=== PATIENT | female | born 1995 | race Asian ===

== ENCOUNTER 2022-12-07 08:05 | Emergency (ER) | payer BC, SELFPAY ==
[2022-12-07 08:09] VITALS: BP 135/95; PULSE 105; RESP 18; TEMP 36.3; O2SAT 99; BMI 30.4
--- NOTE | 2022-12-07 08:45 | US_ITS ---
Patient: KAROLINE CASTANON Facility:?[facility] Patient ID:?[id number] Site Patient ID:?[id number]. Site :?[id number] Study:?US-Pelvis -12/07/2022 10:51:45 AM Ordering Physician:Manish Madsen Final Report: INDICATION: Left lower quadrant abdominal pain. FINDINGS: A transabdominal and endovaginal pelvic ultrasound shows the uterus of normal size, contour, and echogenicity. Normal appearance of the endometrial stripe which measures 9 mm in thickness. Nabothian cysts in the cervix. Normal appearance of the ovaries with the right ovary measuring 2.9 x 2.3 x 2.0 cm and left ovary measuring 3.5 x 1.5 x 1.0 cm. Color and spectral Doppler analysis shows normal arterial and venous blood flow to both ovaries. Trace amount of free fluid in the pelvis. Impression : 1. No acute abnormalities of the uterus or ovaries identified. Dictated by Dale Grider MD @ 12/07/2022 11:28:02 AM Signed by:?Dale Grider MD @12/07/2022 11:28:02 AM (Electronic Signature)
[2022-12-07] MEDS: 0.9 % SODIUM CHLORIDE 1000 ml 1,000 ML IV (09:07)
[2022-12-07] MEDS: KETOROLAC 30 MG/ML inj IVP (09:08)
[2022-12-07 09:15] LABS: Lactate* 1.9 mmol/L (0.5-1.9)
[2022-12-07 09:16] LABS: Basophils Absolute Auto 0.03 K/uL (0.00-0.30); Basophils Percent Auto 0.3 % (0.0-3.0); Eosinophils Absolute Auto 0.24 K/uL (0.00-0.50); Eosinophils Percent Auto 2.2 % (0.0-7.0); Hematocrit 38.6 % (33.0-51.0); Hemoglobin* 12.7 gm/dL (12.0-16.0); Immature Granulocytes Abs Auto 0.02 K/uL (0.00-0.30); Immature Granulocytes Pct Auto 0.2 %; Lymphocytes Absolute Auto 2.42 K/uL (0.90-2.90); Lymphocytes Percent Auto 22.3 % (20-44); Mean Corpuscular HGB Conc 33 gm/dL (32-36); Mean Corpuscular Hemoglobin 27 pg (26-34); Mean Corpuscular Volume 83 fL (80-100); Monocytes Percent Auto 5.5 % (0.0-11.0); Neutrophils Absolute Auto 7.55 K/uL (1.7-7.0); Neutrophils Percent Auto 69.5 % (42.0-72.0); Platelet Count* 454 K/uL (140-440); RDW Coefficient of Variation % 13.4 % (11.5-15.5); Red Blood Count 4.65 m/uL (4.00-5.20); White Blood Count* 10.86 K/uL (4.50-11.00)
[2022-12-07 09:18] LABS: Slide Review Reflex No
--- NOTE | 2022-12-07 09:21 | ED_ITS ---
HPI - Abdominal Pain General Chief Complaint: Abdominal Pain Stated Complaint: left lower abdominal pain, and right knee pain Time Seen by Provider: 12/07/22 08:23 Source: patient Mode of arrival: ambulatory Limitations: no limitations History of Present Illness HPI narrative: 27-year-old female coming in today complaining of left lower abdominal pain that started around 3:00 a.m. therefore, it has been going on for approximately 7 hours. Nothing seems to make it better, movement makes it worse. Does not radiate and stays in the left lower quadrant. She does not have any nausea or vomiting. She did not eat anything this morning. No fevers or chills. Last period was approximately 2 weeks ago, however, she had spontaneous spotting that started yesterday. She is sexually active and is not on any control. She denies any urinary symptoms like increased frequency, urgency or dysuria. Bowel movements have been normal and regular. Patient does state that she has a history of polycystic ovarian syndrome, does not take any medications. Patient has 3 children at. Had chlamydia 1 year ago. Related Data Home Medications Medication Instructions Recorded Confirmed No Known Home Medications 12/07/22 12/07/22 Allergies Allergy/AdvReac Type Severity Reaction Status Date / Time Sulfa (Sulfonamide Allergy Verified 12/07/22 08:13 Antibiotics) Review of Systems Status of ROS Reports: 10 or more systems reviewed and unremarkable except as noted in History and below [facility] Social History Smoking Status: Never smoker How often do you have a drink containing alcohol: monthly or less AUDIT-C Alcohol total score: 1 Non-prescribed substance use: denies use Exam Narrative: Exam Narrative: Well-nourished well-developed patient, appears uncomfortable. Alert and oriented. Answers questions appropriately. Mood and affect are appropriate. Thoughts are goal oriented and rational. No tangential or magical thinking noted. Patient speaks in full sentences without needing to catch her breath. HEENT: Normocephalic atraumatic. Pupils are equally round reactive to light. Extraocular muscles are intact. Conjunctivae are moist without any icterus noted. Moist mucous membranes. Posterior pharynx is normal. Neck is soft without any lymphadenopathy or thyromegaly. No masses are appreciated. Cardiovascular: Heart is regular rate and rhythm S1 and S2 are present without any murmurs. Lungs: Clear to auscultation bilaterally no wheezes rhonchi or rales are appreciated. Patient takes deep breaths without any discomfort. Abdomen: Soft and nondistended with normal bowel sounds. No guarding or rebound. No masses or organomegaly appreciated. She does have left lower quadrant tenderness. No periumbilical pain. Extremities: Bilateral lower extremities are without edema. Normal DP and PT pulses. Skin: Well perfused without any obvious rashes. Const: Vital Signs, click to edit/add: Vital Signs - 24 hr 12/07/22 08:09 12/07/22 10:20 12/07/22 11:47 Temperature 97.3 F L Pulse Rate [Right Pulse Oximeter] 105 H 79 86 Respiratory Rate 18 18 16 Blood Pressure [Ri ght Upper Arm] 135/95 H 129/90 H 129/80 Pulse Oximetry 99 99 98 Oxygen Delivery Me thod Room Air Room Air Room Air 12/07/22 12:00 Temperature Pulse Rate [Right Pulse Oximeter] 91 Respiratory Rate 16 Blood Pressure [Ri ght Upper Arm] 124/92 H Pulse Oximetry 99 Oxygen Delivery Me thod Room Air Course Course Hospital Course: IV established and patient received normal saline and Toradol. This did not really help her pain so it was followed up with morphine. Labs were unremarkable. However, her test was positive. Pelvic ultrasound was entirely normal and did not show evidence of . The tech had mention an abnormality by the left ovary, I discussed this with the radiologist and he stated that it looked like normal the bowel loops hence the reason it was not mention his report. HCG quantitative was 815. Discussed this case with Dr. Medeiros who recommends pain management and clinic follow-up in 2-3 days for repeat HCG quantitative. Of note, patient does not want this . Pain was controlled with oral hydrocodone. Vital Signs Vital signs: Initial Vital Signs Temperature 97.3 F L 12/07/22 08:09 Temperature Source Temporal Artery Scan 12/07/22 08:09 Pulse Rate 105 H 12/07/22 08:09 Respiratory Rate 18 12/07/22 08:09 Blood Pressure 135/95 H 12/07/22 08:09 Blood Pressure Mean 108 H 12/07/22 08:09 Blood Pressure Position Sitting 12/07/22 08:09 Pulse Oximetry 99 12/07/22 08:09 Oxygen Delivery Method Room Air 12/07/22 08:09 Vital Signs Temperature 97.3 F L 12/07/22 08:09 Pulse Rate 105 H 12/07/22 08:09 Respiratory Rate 18 12/07/22 08:09 Blood Pressure 135/95 H 12/07/22 08:09 Pulse Oximetry 99 12/07/22 08:09 Oxygen Delivery Method Room Air 12/07/22 08:09 Temperature 97.3 F L 12/07/22 08:09 Pulse Rate 91 12/07/22 12:00 Respiratory Rate 16 12/07/22 12:00 Blood Pressure 124/92 H 12/07/22 12:00 Pulse Oximetry 99 12/07/22 12:00 Oxygen Delivery Method Room Air 12/07/22 12:00 MDM - Abdominal Pain MDM Narrative Medical decision making narrative: 27-year-old female with indeterminate and left lower quadrant abdominal pain. Patient will follow-up with OBGYN in the next 2-3 days for repeat lab work and appropriate follow-up. She will return to the ER if symptoms become significantly worse, she develops vomiting or fever. Patient will be sent home with 10 tablets of Percocet 5-325. Lab Data Attestation: I reviewed the patient's lab results. Labs: Lab Results 12/07/22 12/07/22 Range/Units 09:03 11:10 WBC 10.86 (4.50-11.00) K/uL RBC 4.65 (4.00-5.20) m/uL Hgb 12.7 (12.0-16.0) gm/dL Hct 38.6 (33.0-51.0) % MCV 83 (80-100) fL MCH 27 (26-34) pg MCHC 33 (32-36) gm/dL RDW Coeff of David 13.4 (11.5-15.5) % Plt Count 454 H (140-440) K/uL Neut % (Auto) 69.5 (42.0-72.0) % Lymph % (Auto) 22.3 (20-44) % [place] % (Auto) 5.5 (0.0-11.0) % Eos % (Auto) 2.2 (0.0-7.0) % Baso % (Auto) 0.3 (0.0-3.0) % Neut # (Auto) 7.55 H (1.7-7.0) K/uL Lymph # (Auto) 2.42 (0.90-2.90) K/uL [place]yler # (Auto) 0.60 (0.00-0.90) K/UL Eos # (Auto) 0.24 (0.00-0.50) K/uL Baso # (Auto) 0.03 (0.00-0.30) K/uL Abs Immat Gran (auto) 0.02 (0.00-0.30) K/uL Imm/Tot Granulo (auto) 0.2 % Sodium 135 (135-149) mmol/L Potassium 3.8 (3.6-5.1) mmol/L Chloride 105 (96-114) mmol/L Carbon Dioxide 19 L (20-32) mmol/L BUN 11 (5-24) mg/dL Creatinine 0.8 (0.5-1.5) mg/dL Estimated Creat Clear 83.54 Estimated GFR 104 ml/min Glucose 127 H (60-115) mg/dL Lactate 1.9 (0.5-1.9) mmol/L Calcium 9.1 (8.4-10.6) mg/dL Total Bilirubin 0.6 (0.1-1.5) mg/dL Direct Bilirubin 0.2 (0.0-0.5) mg/dL AST 34 (12-35) U/L ALT 31 (4-35) U/L Alkaline Phosphatase 73 (40-150) U/L C-Reactive Protein 0.5 (0.5-1.0) mg/dL Total Protein 8.1 (6.0-8.3) g/dL Albumin 4.5 (3.3-5.0) g/dL HCG, Quant 815.00 mIU/mL Urine Color [place] A (Yellow) Urine Appearance Slightly Cloudy A (Clear) Urine pH 6.0 (5.0-8.5) Ur Specific [place] 1.020 (1.000-1.030) Urine Protein 1+ A (Negative) Urine Glucose (UA) Negative (Negative) Urine Ketones Negative (Negative) Urine Blood 3+ A (Negative) Urine Nitrite Negative (Negative) Urine Bilirubin Negative (Negative) Urine Urobilinogen 0.2 (0.2-1.0) Ur Leukocyte Esterase Negative (Negative) Urine RBC >100 A (0-2) Urine WBC 2-5 (0-5) Ur Squamous Epith Cells Many A (None-Few) Urine Bacteria Few A (None) Urine HCG, Qual POSITIVE H (Negative) Imaging Data Pelvic ultrasound: Attestation: I have reviewed the pertinent imaging results. Radiologist's impression: Left lower quadrant abdominal pain. FINDINGS: A transabdominal and endovaginal pelvic ultrasound shows the uterus of normal size, contour, and echogenicity. Normal appearance of the endometrial stripe which measures 9 mm in thickness. Nabothian cysts in the cervix. Normal appearance of the ovaries with the right ovary measuring 2.9 x 2.3 x 2.0 cm and left ovary measuring 3.5 x 1.5 x 1.0 cm. Color and spectral Doppler analysis shows normal arterial and venous blood flow to both ovaries. Trace amount of free fluid in the pelvis. Impression : 1. No acute abnormalities of the uterus or ovaries identified. Discharge Plan Discharge Clinical Impression: , Abdominal pain Patient Disposition: Home, Self-Care Condition: Stable Additional Instructions: You should call the [facility] 1st thing in the morning and request an appointment in 2-3 days for an ER follow-up. Take pain medication as needed. Return to the emergency room if the pain becomes significantly worse, you develop vomiting or fever. Pain medication sent to [facility]. Prescriptions: No Action No Known Home Medications Follow Up/Referrals: Danielle Guardado PA-C [Primary Care Provider] - Stand Alone Forms: [employer] Info Instructions
[2022-12-07 09:32] LABS: Albumin* 4.5 g/dL (3.3-5.0); Chloride* 105 mmol/L (96-114); Sodium* 135 mmol/L (135-149)
[2022-12-07 09:33] LABS: Potassium* 3.8 mmol/L (3.6-5.1)
[2022-12-07 09:35] LABS: Bilirubin Direct* 0.2 mg/dL (0.0-0.5); Bilirubin Total* 0.6 mg/dL (0.1-1.5); Carbon Dioxide* 19 mmol/L (20-32); Creatinine* 0.8 mg/dL (0.5-1.5); Est. Creatinine Clearance* 83.54; Estimated Glomerular Filt Rate 104 ml/min
[2022-12-07 09:36] LABS: Alanine Aminotransferase* 31 U/L (4-35); Alkaline Phosphatase* 73 U/L (40-150); Aspartate Amino Transferase* 34 U/L (12-35); Blood Urea Nitrogen* 11 mg/dL (5-24); Calcium* 9.1 mg/dL (8.4-10.6); Glucose* 127 mg/dL (60-115); Total Protein* 8.1 g/dL (6.0-8.3)
[2022-12-07 09:38] LABS: C Reactive Protein* 0.5 mg/dL (0.5-1.0)
[2022-12-07 10:20] VITALS: BP 129/90; PULSE 79; RESP 18; O2SAT 99
[2022-12-07 11:18] LABS: Appearance Urine Slightly Cloudy (Clear); Bilirubin Urine Negative (Negative); Blood Urine 3+ (Negative); Color Urine Orange (Yellow); Glucose Urine Negative (Negative); Ketones Urine Negative (Negative); Leukocyte Esterase Urine Negative (Negative); Nitrite Urine Negative (Negative); Protein Urine 1+ (Negative); Urobilinogen Urine 0.2 (0.2-1.0)
[2022-12-07] MEDS: MORPHINE 2 MG/ML inj IVP (11:37)
[2022-12-07 11:44] LABS: Bacteria Urine Few; RBC Urine >100 (0-2); Squamous Epithelial Cell Urine Many (None-Few)
--- NOTE | 2022-12-07 11:44 | ED.NURSE ---
patient is having continued pain rated at 8/10 scale. given Morphine 2 mg IVP now for pain. wanting to know how long will need to stay.
[2022-12-07 11:47] VITALS: BP 129/80; PULSE 86; RESP 16; O2SAT 98
[2022-12-07 11:50] LABS: Ur HCG Qualitative* POSITIVE (Negative)
[2022-12-07 12:00] VITALS: BP 124/92; PULSE 91; RESP 16; O2SAT 99
--- NOTE | 2022-12-07 12:25 | ED.NURSE ---
up to the bathroom via ambulatory and stated pain is 7/10 scale. c/o feeling pulsating and comes/goes with pain, and as if going to explode. Informed Dr. Lai of this.
[2022-12-07] MEDS: HYDROCODONE-ACETAMIN 5-325 MG 1 TAB 2 TAB PO (12:42)
--- NOTE | 2022-12-07 12:53 | ED.NURSE ---
patient continues to have pain in the LLQ and given norco for pain [address] Lai is in talking with patient and patient is not wanting PG and if able to take something to prevent growth of fetus patient would like this. is talking to [facility]STRATE TESTER
--- NOTE | 2022-12-07 13:20 | ED.NURSE ---
Pt notified this administrative underwriter during discharge that she is unable to take oxycodone due to vomiting. Pt requesting different prescription. Dr. Lai notified. Per Dr. Lai, cancel [facility] prescription for Percocet. New RX written for Hydrocodone 5-325mg Take 1 tab PO Q 4 hours PRN for pain. No refills. Qty of 10. Written RX given to patient. Call placed to [facility] to cancel Percocet prescription.
== END 2022-12-07 13:17 | disposition home or self-care (01) ==
PROVIDERS: Emergency Provider Family Medicine; PCP Physician Assistant Medical
DX: R10.9 Unspecified abdominal pain (principal); Z33.1 Pregnant state, incidental
CPT/HCPCS: 36415; 76830; 76856; 80048; 80076; 81001; 81025; 83605; 84702; 85025; 86140; 87086; 93976; 96361; 96374; 96375; 99284; 99285; A9270; J1885; J2270; J7030

== ENCOUNTER 2022-12-09 16:04 | Day surgery (SDC) | payer BC, SELFPAY ==
[2022-12-09] VITALS (24 sets, daily range): BP systolic 101–136; BP diastolic 50–92; PULSE 63–113; RESP 12–24; TEMP 36.2–36.7; O2SAT 96–100; BMI 31.0
--- NOTE | 2022-12-09 16:29 | ED_ITS ---
HPI - General Adult General Chief complaint: Abdominal Pain Stated complaint: Lower abdominal pain, L side Time Seen by Provider: 12/09/22 16:13 History of Present Illness HPI narrative: patient is still in pain and about the same as on Thursday. found + PG and did the blood HCG quant to show patient is very early in PG and was to return to clinic for a FU appointment and did which send to ED for evaluation. US unsure of location if in uterus or fallopian tube unclear 27-year-old presenting to the emergency department, returning after visit 2 days ago. Began having some bleeding the night of the and then seen here the following morning. Was noted to be very early in but unable to locate gestational sac. Continues to have pain and menstrual type bleeding. Has not had a fever. No other discharge noted. Does not feel like eating but not exactly nauseated. Pain has been quite intense. Cramping in nature. Straightening up or extending at the waist in any way causes a great deal of pain. Is not feeling lightheaded. Not short of breath. The [place] she received she says is not helping with the pain though she manages to briefly fall asleep. Yesterday beta hCG serum quantitative was a little more than 800. She notes a history of menses every other month typically. LMP was November 22. Notes a history of PCOS. Related Data Home Medications Medication Instructions Recorded Confirmed No Known Home Medications 12/07/22 12/09/22 Allergies Allergy/AdvReac Type Severity Reaction Status Date / Time Sulfa (Sulfonamide Allergy Verified 12/09/22 16:15 Antibiotics) Review of Systems Status of ROS: Reports: 6 or more systems reviewed and unremarkable except as noted in History and below [facility] Social History What is your current living situation?: I presently have a place to live Problems where you live: no known problems In the past 12 months, utilities in danger of being shut off: no In the past 12 mos, have been you worried that your food would run out before you had money to buy more?: never true In the past 12 mos, the food you bought just didn't last and you didn't have money to buy more?: never true Smoking Status: Current some day smoker Do you use any of these nicotine containing products: E-Cigarettes How often do you have a drink containing alcohol: monthly or less AUDIT-C Alcohol total score: 1 Non-prescribed substance use: denies use How often does anyone, including family, friends and others, physically hurt you : never How often does anyone, including family, friends and others, insult or talk down to you: never How often does anyone, including family, friends and others, threaten you with harm: never How often does anyone, including family, friends and others, scream or curse at you: never Exam Narrative: Exam Narrative: Pleasant. Uncomfortable appearing. Winces in transition. Breathing easily otherwise. Lungs appear to be clear. Heart in elevated rate in a regular rhythm. Has no flank pain. Abdomen is soft and she guards a little in marked pain in the left lower quadrant/adnexal area. Extremities are well perfused without edema. Const: Vital Signs, click to edit/add: Vital Signs - 24 hr 12/09/22 16:09 12/09/22 17:00 12/09/22 17:10 Temperature 98.0 F Pulse Rate Pulse Rate [Right Pulse Oximeter] 98 Respiratory Rate 16 Blood Pressure [Le ft Upper Arm] 108/74 126/88 Pulse Oximetry 98 98 Oxygen Delivery Me thod Room Air 12/09/22 17:18 Temperature Pulse Rate 96 Pulse Rate [Right Pulse Oximeter] Respiratory Rate Blood Pressure [Le ft Upper Arm] Pulse Oximetry 98 Oxygen Delivery Me thod Documenting provider has reviewed patient's vital signs: yes Course Vital Signs Vital signs: Initial Vital Signs Temperature 98.0 F 12/09/22 16:09 Temperature Source Temporal Artery Scan 12/09/22 16:09 Pulse Rate 98 12/09/22 16:09 Respiratory Rate 16 12/09/22 16:09 Blood Pressure 108/74 12/09/22 16:09 Blood Pressure Mean 85 12/09/22 16:09 Blood Pressure Position Sitting 12/09/22 16:09 Pulse Oximetry 98 12/09/22 16:09 Oxygen Delivery Method Room Air 12/09/22 16:09 Vital Signs Temperature 98.0 F 12/09/22 16:09 Pulse Rate 98 12/09/22 16:09 Respiratory Rate 16 12/09/22 16:09 Blood Pressure 108/74 12/09/22 16:09 Pulse Oximetry 98 12/09/22 16:09 Oxygen Delivery Method Room Air 12/09/22 16:09 Temperature 98.0 F 12/09/22 16:09 Pulse Rate 96 12/09/22 17:18 Respiratory Rate 16 12/09/22 16:09 Blood Pressure 126/88 12/09/22 17:10 Pulse Oximetry 98 12/09/22 17:18 Oxygen Delivery Method Room Air 12/09/22 16:09 Medical Decision Making MDM Narrative Medical decision making narrative: Location of apparent is still in question. Will re-evaluate with ultrasound and hCG quantitative. Repeat CBC as well and type and screen. IV placed. Given IV normal saline and dose of Dilaudid. Subsequent nausea required Zofran. New Vehicle Sales Consultant indicates concern of potential ectopic in the left adnexal area. HCG is decreasing. Has required repeat doses of Dilaudid for pain control. Abdomen remains exquisitely tender. Have contacted confidential secretary on-call Dr. Longo and anticipating surgery. Discussed with Dr. Uribe ultrasound findings confirming above Final Report: INDICATION: Left lower quadrant pain, + test. COMPARISON: December 07, 2022. TECHNIQUE: Transvaginal ultrasound images grayscale and color Doppler. FINDINGS: The uterus is retroflexed. The uterus appears enlarged. The endometrial stripe measures 1.2 cm. There is no intrauterine identified. The right ovary appears normal. The left ovary may contain several follicles. There is a mass in the left adnexa, likely separate from the left ovary measuring 1.7 x 1.3 x 1.3 cm. There is increased free fluid within the pelvis. IMPRESSION: of unknown location with probable mass in the left adnexa separate from the ovary and increasing free fluid in the pelvis. Findings are an ectopic until proven otherwise. Recommend immediate FLUE GAS ANALYST consultation. Lab Data Lab results reviewed: Yes I reviewed the patient's lab results Labs: Lab Results 12/09/22 12/09/22 Range/Units 16:59 17:30 WBC 12.35 H (4.50-11.00) K/uL RBC 4.59 (4.00-5.20) m/uL Hgb 12.5 (12.0-16.0) gm/dL Hct 38.3 (33.0-51.0) % MCV 83 (80-100) fL MCH 27 (26-34) pg MCHC 33 (32-36) gm/dL RDW Coeff of David 13.5 (11.5-15.5) % Plt Count 437 (140-440) K/uL Neut % (Auto) 78.3 H (42.0-72.0) % Lymph % (Auto) 14.9 L (20-44) % Dolores % (Auto) 4.9 (0.0-11.0) % Eos % (Auto) 1.5 (0.0-7.0) % Baso % (Auto) 0.2 (0.0-3.0) % Neut # (Auto) 9.70 H (1.7-7.0) K/uL Lymph # (Auto) 1.80 (0.90-2.90) K/uL [place] # (Auto) 0.60 (0.00-0.90) K/UL Eos # (Auto) 0.20 (0.00-0.50) K/uL Baso # (Auto) 0.00 (0.00-0.30) K/uL Abs Immat Gran (auto) 0.00 (0.00-0.30) K/uL Imm/Tot Granulo (auto) 0.2 % C-Reactive Protein 0.7 (0.5-1.0) mg/dL HCG, Quant 729.40 mIU/mL Urine Color Red A (Yellow) Urine Appearance Cloudy A (Clear) Urine pH 6.5 (5.0-8.5) Ur Specific [place] 1.020 (1.000-1.030) Urine Protein 1+ A (Negative) Urine Glucose (UA) Negative (Negative) Urine Ketones 1+ A (Negative) Urine Blood 3+ A (Negative) Urine Nitrite Negative (Negative) Urine Bilirubin Negative (Negative) Urine Urobilinogen 0.2 (0.2-1.0) Ur Leukocyte Esterase Negative (Negative) Urine RBC >100 A (0-2) Urine WBC 0-2 (0-5) Ur Squamous Epith Cells Moderate A (None-Few) Urine Bacteria None (None) Blood Type AB Positive Antibody Screen NEGATIVE Discharge Plan Discharge Clinical Impression: Ectopic , Adnexal pain Patient Disposition: XFER to OR Condition: Stable Follow Up/Referrals: Danielle Guardado PASinaC [Primary Care Provider] -
--- NOTE | 2022-12-09 16:44 | CRLHL7_ITS ---
For Patients: As a result of the Cures Act, medical imaging exams and procedure reports are released immediately into your electronic medical record. You may view this report before your referring provider. If you have questions, please contact your health care provider. INDICATION: Left lower quadrant pain, + test. COMPARISON: December 07, 2022. TECHNIQUE: Transvaginal ultrasound images grayscale and color Doppler. FINDINGS: The uterus is retroflexed. The uterus appears enlarged. The endometrial stripe measures 1.2 cm. There is no intrauterine identified. The right ovary appears normal. The left ovary may contain several follicles. There is a mass in the left adnexa, likely separate from the left ovary measuring 1.7 x 1.3 x 1.3 cm. There is increased free fluid within the pelvis. IMPRESSION: of unknown location with probable mass in the left adnexa separate from the ovary and increasing free fluid in the pelvis. Findings are an ectopic until proven otherwise. Recommend immediate NANOFABRICATION SPECIALIST consultation. Discussed with Cuco Leyva by MD Jojo at 6:39 PM on 12/09/22. Dictated by Boo Uribe MD @ 12/09/2022 6:33:01 PM (Electronically Signed)
[2022-12-09] MEDS: 0.9 % SODIUM CHLORIDE 1000 ml 1,000 ML IV (17:00)
[2022-12-09] MEDS: HYDROmorphone 0.5 mg/0.5 ml inj 1 MG IVP (17:00)
[2022-12-09 17:08] LABS: Basophils Percent Auto 0.2 % (0.0-3.0); Eosinophils Percent Auto 1.5 % (0.0-7.0); Hematocrit 38.3 % (33.0-51.0); Hemoglobin* 12.5 gm/dL (12.0-16.0); Immature Granulocytes Pct Auto 0.2 %; Lymphocytes Percent Auto 14.9 % (20-44); Mean Corpuscular HGB Conc 33 gm/dL (32-36); Mean Corpuscular Hemoglobin 27 pg (26-34); Mean Corpuscular Volume 83 fL (80-100); Monocytes Percent Auto 4.9 % (0.0-11.0); Neutrophils Percent Auto 78.3 % (42.0-72.0); Platelet Count* 437 K/uL (140-440); RDW Coefficient of Variation % 13.5 % (11.5-15.5); Red Blood Count 4.59 m/uL (4.00-5.20); White Blood Count* 12.35 K/uL (4.50-11.00)
[2022-12-09] MEDS: ONDANSETRON 2 MG/ML inj 4 MG IVP ×2 (17:11→20:00)
[2022-12-09 17:23] LABS: Slide Review Reflex No
[2022-12-09 17:39] LABS: Appearance Urine Cloudy (Clear); Bilirubin Urine Negative (Negative); Blood Urine 3+ (Negative); Color Urine Red (Yellow); Glucose Urine Negative (Negative); Ketones Urine 1+ (Negative); Leukocyte Esterase Urine Negative (Negative); Nitrite Urine Negative (Negative); Protein Urine 1+ (Negative); Urobilinogen Urine 0.2 (0.2-1.0); pH Urine 6.5 (5.0-8.5)
[2022-12-09 17:42] LABS: C Reactive Protein* 0.7 mg/dL (0.5-1.0)
[2022-12-09 17:51] LABS: RBC Urine >100 (0-2); Squamous Epithelial Cell Urine Moderate (None-Few); WBC Urine 0-2 (0-5)
[2022-12-09] MEDS: HYDROmorphone 0.5 mg/0.5 ml inj IVP (18:24)
--- NOTE | 2022-12-09 19:50 | PM.GYNCN1 ---
ETHYLBENZENE OXIDIZER - CN: HPI Data of Consult Date Seen: 12/09/22 Patient: [facility] Patient Consult date: 12/09/22 Requesting Physician: Dr. Cuco Middleton Primary Care Provider: Danielle Guardado PA-C Consult Narrative Narrative: Tierney Bird is a 27 year old female who presents for a second visit to the ER for abdominal pain in early . She was 1st seen for this complaint 12/07/2022. In the ER, at that time, she was found to have quantitative HCG of 818. She had a normal pelvic ultrasound at that time with a 9 mm endometrial stripe. She was seen in follow-up by Mary Zapien CNM in clinic. She was found have severe abdominal pain, and was sent to the ER for further evaluation. She had a repeat ultrasound showing 1.2 cm endometrial stripe without any intrauterine identified. There was a mass noted in the left adnexa, likely separate from the left ovary, measuring 1.3 x 11.7 x 1.3 cm. There is also increased free fluid in the pelvis. Both of these findings are suspicious for ectopic . Additional pertinent testing today includes: Quantitative HCG 729.4 WBC 12.35, hemoglobin 12.5, platelets 437 These results are reviewed with her today. She is interested in sterilization. She is certain she wants no more children. However, she does have Medicaid for insurance. Obstetric and gynecologic history: Para 3, with 3 spontaneous vaginal deliveries. Pregnancies complicated by nausea and vomiting. PCOS, with oligomenorrhea every 2 months Past surgical history: Breast lumpectomy for benign disease cc:: CC: Review of Systems Narrative: Positive for abdominal pain PFSH PFSH Surgical History (Updated 12/09/22 @ 19:57 by Laura Longo MD) S/P breast lumpectomy ?Z98.890 - Other specified postprocedural states (ICD-10) Social History What is your current living situation?: I presently have a place to live Problems where you live: no known problems In the past 12 months, utilities in danger of being shut off: no In the past 12 mos, have been you worried that your food would run out before you had money to buy more?: never true In the past 12 mos, the food you bought just didn't last and you didn't have money to buy more?: never true Smoking Status: Current some day smoker Do you use any of these nicotine containing products: E-Cigarettes How often do you have a drink containing alcohol: monthly or less AUDIT-C Alcohol total score: 1 Non-prescribed substance use: denies use How often does anyone, including family, friends and others, physically hurt you: never How often does anyone, including family, friends and others, insult or talk down to you: never How often does anyone, including family, friends and others, threaten you with harm: never How often does anyone, including family, friends and others, scream or curse at you: never Meds Home Medications and Allergies Home Medications Medication Instructions Recorded Confirmed Type No Known Home Medications 12/07/22 12/09/22 History Allergies Allergy/AdvReac Type Severity Reaction Status Date / Time Sulfa (Sulfonamide Allergy Verified 12/09/22 16:15 Antibiotics) ETHYLBENZENE OXIDIZER - Exam Physical Exam: Vital signs: Temp Pulse Resp BP Pulse Ox O2 Del Method 98.0 F 95 16 136/88 98 Room Air 12/09/22 16:09 12/09/22 19:02 12/09/22 16:09 12/09/22 19:01 12/09/22 19:02 12/09/22 16:09 Narrative: Physical exam: Vitals as noted above. General: No acute distress Psych: Alert and oriented x 3, full affect HEENT: Normocephalic, atraumatic Abdomen: Not distended, soft , severe abdominal pain noted by Dr. Middleton on his exam prior to narcotic pain medications ETHYLBENZENE OXIDIZER - Results Labs Labs: Short CBC 12/09/22 Range/Units 16:59 WBC 12.35 H (4.50-11.00) K/uL Hgb 12.5 (12.0-16.0) gm/dL Hct 38.3 (33.0-51.0) % Plt Count 437 (140-440) K/uL Urine 12/09/22 Range/Units 17:30 Urine Color Red A (Yellow) Urine Appearance Cloudy A (Clear) Urine pH 6.5 (5.0-8.5) Ur Specific [place] 1.020 (1.000-1.030) Urine Protein 1+ A (Negative) Urine Glucose (UA) Negative (Negative) Assessment and Plan Assessment and plan (1) Ectopic : Status: Acute Assessment and Plan: Definite nonviable . Suspected left ectopic on imaging. Patient does not desire fertility. I explained that I cannot remove both tubes unless there is a medical indication other than the desired sterilization. I will intend to remove the left tube, and will evaluate her other to for any abnormality. Plan is for laparoscopic left salpingectomy. We discussed risks of procedure, including bleeding/hemorrhage, infection, damage to internal organs, risks of anesthesia, thromboembolism. We discussed likely postoperative restrictions and precautions. She prefers treatment with hydrocodone or tramadol instead of oxycodone, which causes nausea and vomiting. Consent form is reviewed with and signed by patient.
[2022-12-09] MEDS: LACTATED RINGERS 1000 ML 1,000 ML 125 ML IV (20:08)
[2022-12-09] MEDS: BUPIVACAINE 0.25% 30 ML INJECTION (20:48)
--- NOTE | 2022-12-09 22:21 | W.PM.GYNPROC ---
Procedure Note Date of procedure: 12/09/22 Pre-op diagnosis: Nonviable , suspected ruptured ectopic Post-op diagnosis: other (1. Ruptured left tubal . 2. Endometriosis, involving the cul-de-sac, right fallopian tube, and possibly the rectovaginal septum and sigmoid colon. 3. Right hydrosalpinx. 4. Pelvic adhesions. 5. ) Procedure: Laparoscopy with bilateral salpingectomy, lysis of adhesions, excision of endometriosis Anesthesia: GETA Complications: None Surgeon: Laura Longo MD Estimated blood loss (mL): 25 IV fluids (mL): 900 Urine Output (mL): 500 Pathology: specimen obtained, sent to pathology Condition: stable Disposition: PACU Findings: 1. Upon pelvic exam under anesthesia, the cervix and vagina were normal in appearance. Uterus was mobile and retroverted, of normal size and texture. 2. Upon laparoscopy, survey of the upper abdomen revealed perihepatic lesions on the right lobe of the liver. The gallbladder was normal in appearance, as was the left lobe of the liver. There were adhesions of the descending colon along the left pelvic brim; the large intestine at this site was densely adherent to the pelvic sidewall and there was suspected endometriosis with in these adhesions. The appendix was normal appearance. Survey of the pelvis revealed a globular, retroverted uterus that was adherent to the right pelvic sidewall. There was blood in the pelvis. The left fallopian tube was bleeding and dilated from its mid isthmic portion through the fimbriated end, with clot, blood, and suspected chorionic villi extruding from the fimbria. The right fallopian tube was adherent to the pelvic sidewall and encased in filmy adhesions, obviously dilated, and exhibited deposits of endometriosis along its surface. The right ovary was adherent to the uterus with pelvic adhesions. Otherwise, ovaries were normal in appearance. The cul-de-sac exhibited some deep macules suspicious for endometriosis, with some suspicious nodules within the rectovaginal septum; this could represent hard stool or deeply imbedded endometriosis. The bladder reflection was normal in appearance. Procedure Description: Patient was taken to the operating room with IV running. She was positioned in dorsal lithotomy position with her legs fully supported in Yellofin stirrups. General anesthesia was administered. She was prepped and draped in the usual sterile fashion. Bimanual exam was performed for the above-noted findings. Speculum was inserted. A single-toothed uterine manipulator was inserted through the cervix into the lower uterine segment, and affixed to the anterior cervical lip. Speculum was removed. Weiss catheter was placed. Patient's legs were placed in neutral position. Attention was turned to patient's abdomen. The infraumbilical area was infiltrated with small amount of Marcaine. An infraumbilical incision was made with a scalpel and carried through to the underlying layer of fascia with a hemostat. The 5 mm Fios Kii trocar was assembled with laparoscope within, and insufflator attached. While tenting up the abdomen manually, the trocar was passed through the anterior abdominal wall into the peritoneal cavity. Trocar was removed. Pneumoperitoneum was achieved. Survey of abdomen and pelvis revealed the above-noted findings. Three additional port sites were created. The first was in the patient's left lower quadrant, just superior medial to the left ASIS. The second was a hand's breath superior to and slightly medial to the first. The third was in the patient's right lower quadrant, just superior medial to the right ASIS. Each was infiltrated with small amount of Marcaine prior to incision. An 11 mm incision was made at the left lower quadrant port site, and 5 mm incisions were made at the other 2 sites, making sure the large vessels were out of harm's way. An 11 mm Fios Kii port was inserted in left lower quadrant port site, and 5 mm Fios Kii ports were inserted at the other 2 sites, under direct visualization and without complication. The balloon on each of the four ports was inflated, holding each in place. The dilated left fallopian tube was is elevated at the pelvis, and held away from the left ovary. The blood supply was divided with the Thunderbeat device. Moving laterally to medially through the mesosalpinx, the Thunderbeat was used to cauterize and transect the mesosalpinx, until the cornua was reached. The tube was amputated at the cornua and placed along the anterior portion of the uterus. An Endo-Catch bag was placed through the left lower quadrant port site. The specimen was placed in the bag and the bag was cinched closed. The port was removed, allowing the bag to be removed as well. The specimen was sent to pathology. The port was then replaced and the balloon tip inflated once again. Attention was then turned to the right adnexa, which was encased in filmy adhesions. Separation of the filmy adhesions between the obviously dilated right fallopian tube resulted in some tearing of the distal part of the tube. This and the obviously dilated appearance with the obvious endometriosis implants on the surface lead to the need to remove the tube. Similarly to the left side, the blood supply was divided distally with the Thunderbeat device. The mesosalpinx was divided laterally to medially, and the tube was ultimately amputated at the right uterine cornua. The broad ligament was thickened at this site. This tube was also sent to pathology for further analysis. The filmy adhesions between the right ovary and the uterus were lysed sharply, allowing greater mobility of the uterus. A laparoscopic tenaculum was used to elevate the uterus by attaching this through the anterior fundus. The cul-de-sac was then more easily visualized. There was either hard stool or deeply imbedded endometriosis just adjacent to the rectum. There was a macule of suspected endometriosis in the cul-de-sac, adjacent to some filmy adhesions. The filmy adhesions were lysed, and the peritoneum at this site was excised sharply and sent to pathology for further analysis. Hemostasis was achieved with monopolar cautery. The synechia was removed from the fundus of the uterus, and hemostasis was achieved at the puncture sites using monopolar cautery. The pelvis was copiously irrigated. Hemostasis was confirmed. Approximately 200 mL of irrigation was left in the cul-de-sac. The 11 mm Fios Kii port in the left lower quadrant was removed after balloon on the port was deflated. The Cristopher-Padmini laparoscopic closure device was inserted through this port. With the help of this device, the fascia was closed with a single suture of 0-Vicryl. Procedure was deemed complete. The balloons of all remaining port sites were deflated, and all ports were removed after pneumoperitoneum was released. The skin of each port site was closed in a subcuticular fashion with 4 0 Monocryl. Surgical glue was applied above this. The uterine manipulator was removed from the patient's uterus. The Weiss catheter was removed from the patient's bladder. Patient tolerated procedure well and was taken to recovery area in stable condition.
--- NOTE | 2022-12-09 22:23 | W.ANESCHARGE ---
Anesthesia Charges Start Date/Time Anesthesia Start Date: 12/09/22 Anesthesia Start Time: 20:08 Stop Date/Time Anesthesia Stop Date: 12/09/22 Anesthesia Stop Time: 22:22 Summary Emergency: MEDICAL CODING TECHNICIAN
[2022-12-10] VITALS (7 sets, daily range): BP systolic 97–126; BP diastolic 61–77; PULSE 93–109; RESP 16–18; TEMP 36.2–36.7; O2SAT 98–100
[2022-12-10] MEDS: HYDROCODONE/ACETAMIN 7.5-325 TABLET 1 TAB PO ×2 (00:18→04:04)
[2022-12-10] MEDS: PROMETHAZINE 25 MG/ML INJ 12.5 MG IVP (00:18)
[2022-12-10] MEDS: LACTATED RINGERS 1000 ML 1,000 ML 125 ML IV (00:19)
--- NOTE | 2022-12-10 05:59 | PC.NURSE ---
END OF SHIFT NOTE: PT PLEASANT AND COOPERATIVE WITH CARES. DENIES CP AND SOB. FEELING NAUSEATED UPON RETURNING FROM PACU. PT RATES ABDOMINAL PAIN 6-10 WITH RELIEF FROM PRN NORCO. PT TOLERATING ICE CHIPS, ORAL FLUIDS AND FOOD.?AMBULATES INDEPENDENTLY. VSS ON RA; AFEBRILE. 4 LAP SITES GLUED, MARIANA; C/D/I. PT SLEPT WELL OVERNIGHT. CALL LIGHT WITHIN PT?S REACH.?
[2022-12-10] MEDS: IBUPROFEN 600 MG TABLET PO (06:16)
== END 2022-12-10 06:42 | disposition home or self-care (01) ==
LOC: ED 19:18 → SS 20:06 → MEDSURG 23:34
PROVIDERS: Emergency Provider Family Medicine; PCP Physician Assistant Medical; Visit Provider Obstetrics & Gynecology
PROC: (CPT 59150; principal; 2022-12-09 19:30)
DX: O00.102 Left tubal pregnancy without intrauterine pregnancy (principal); N80.322 Deep endometriosis of the posterior cul-de-sac; N73.6 Female pelvic peritoneal adhesions (postinfective); N70.11 Chronic salpingitis
CPT/HCPCS: 59151; 58662; 58660; 00840; 36415; 76817; 76830; 81001; 84702; 85025; 86140; 86850; 86900; 86901; 88305; 94761; 99140; 99284; A9270; J0330; J0665; J1170; J1885; J2250; J2371; J2405; J2550; J2704; J2710; J3010; J7030; J7120

== ENCOUNTER 2022-12-12 14:50 | Emergency (ER) | payer BC, SELFPAY ==
[2022-12-12] VITALS (8 sets, daily range): BP systolic 120–122; BP diastolic 80–86; PULSE 64–106; RESP 20; TEMP 36.4; O2SAT 96–99
--- NOTE | 2022-12-12 15:50 | ED_ITS ---
HPI - Abdominal Pain General Time Seen by Provider: 15:50 Date Seen: 12/12/22 Chief Complaint: Abdominal Pain Stated Complaint: Post op lower abdominal pain Time Seen by Provider: 12/12/22 15:30 Source: patient and RN notes reviewed Mode of arrival: ambulatory Limitations: no limitations History of Present Illness HPI narrative: Patient is a 27-year-old female that had surgery for ruptured ectopic here on December 09. She has noted increasing abdominal pain today, increased vaginal bleeding today. She has noted no fevers. Appetite has been diminished throughout this. She states she ate 2 corn dogs this morning but had to space them out. She states she has been tolerating fluids quite well. Denies any urinary symptoms. Last bowel movement was yesterday. Is passing some minimal gas today and states there is some difficulty passing gas. No nausea or vomiting. She did take Vicodin prior to coming in around 1pm. Has felt a little lightheaded today. Pain really has increased since yesterday. MD elicited complaint: abdominal pain Related Data Previous Rx's Medication Instructions Recorded hydrocodone 7.5 mg-acetaminophen 1 tab PO Q4H PRN 4 OR GREATER ON 12/09/22 325 mg tablet PAIN SCALE #25 tabs ibuprofen 600 mg tablet 600 mg PO Q6H PRN Pain #60 tabs 12/09/22 Allergies Allergy/AdvReac Type Severity Reaction Status Date / Time Sulfa (Sulfonamide Allergy Verified 12/09/22 16:15 Antibiotics) Review of Systems Status of ROS Reports: 6 or more systems reviewed and unremarkable except as noted in History and below [facility] Surgical History S/P breast lumpectomy ?Z98.890 - Other specified postprocedural states (ICD-10) Social History What is your current living situation?: I presently have a place to live Problems where you live: no known problems In the past 12 months, utilities in danger of being shut off: no In the past 12 mos, have been you worried that your food would run out before you had money to buy more?: never true In the past 12 mos, the food you bought just didn't last and you didn't have money to buy more?: never true Smoking Status: Current some day smoker Do you use any of these nicotine containing products: E-Cigarettes How often do you have a drink containing alcohol: monthly or less AUDIT-C Alcohol total score: 1 Non-prescribed substance use: denies use How often does anyone, including family, friends and others, physically hurt you : never How often does anyone, including family, friends and others, insult or talk down to you: never How often does anyone, including family, friends and others, threaten you with harm: never How often does anyone, including family, friends and others, scream or curse at you: never Exam Const: Vital Signs, click to edit/add: Vital Signs - 24 hr 12/12/22 15:12 12/12/22 17:15 12/12/22 17:30 Temperature 97.5 F L Pulse Rate 89 79 Pulse Rate [Pulse Oximeter] 106 H Respiratory Rate 20 Blood Pressure [Ri ght Upper Arm] 122/86 Pulse Oximetry 98 99 97 Oxygen Delivery Me thod Room Air 12/12/22 17:45 12/12/22 18:00 12/12/22 18:15 Temperature Pulse Rate 66 74 64 Pulse Rate [Pulse Oximeter] Respiratory Rate Blood Pressure [Ri ght Upper Arm] Pulse Oximetry 97 96 97 Oxygen Delivery Me thod 12/12/22 18:30 Temperature Pulse Rate 75 Pulse Rate [Pulse Oximeter] Respiratory Rate Blood Pressure [Ri ght Upper Arm] Pulse Oximetry 97 Oxygen Delivery Me thod Documenting provider has reviewed patient's vital signs: yes Common normals: no apparent distress, average body habitus, oriented x3, no limitations, healthy appearing, alert and well nourished General appearance: cooperative, comfortable, well kempt and well developed Other: Appears comfortable while lying in bed. HENMT: Common normals: normocephalic, head/scalp atraumatic, hearing grossly normal bilaterally and external nose normal Head and scalp: normocephalic and atraumatic Face and sinus: normal facial exam Nose: external nose normal Eye: Common normals: PERRL, EOMs intact bilaterally, conjunctivae normal and no scleral icterus Conjunctiva: conjunctiva(e) normal Pupil: PERRL Neck & C-Spine: Common normals: full ROM, no lymphadenopathy and supple Resp: Common normals: normal respiratory effort, no retractions, no use of accessory muscles and clear to auscultation bilaterally Effort & inspection: able to speak in complete sentences Auscultation: clear to auscultation bilaterally Cardio: Common normals: regular rate, regular rhythm, S1 normal heart sound, S2 normal heart sound, no gallops, no clicks and no murmurs Rate: regular rate Rhythm: regular rhythm Heart sounds: S1 normal and S2 normal GI: Other: Abdomen looks minimally distended, do not hear bowel sounds. She is quite tender when I palpate anywhere in the lower abdomen to mid abdomen. No guarding no true rebound but moderately generally diffusely tender. Incision sites seem to be clean dry intact, no evidence of erythema. She has a small amount of blood on a panty liner. Neuro: Common normals: oriented x3 Sensorium/orientation: alert Psych: Appearance: well kempt Course Course Hospital Course: Reviewed with patient that I do think we should proceed with CT imaging. With lack of bowel sounds in increasing abdominal pain, do wonder about bowel obstruction or ileus. Do not think she has intra-abdominal bleeding given her stability on examination. Will place an IV, obtain CT abdomen pelvis imaging with IV contrast, get baseline labs. She is declining any pain management at this time including Toradol have turn discussion. She promises to let us know if her pain is increasing. Reevaluation(s) Time of Reevaluation #1: 19:20 Reevaluation #1: Bladder scan was done while I was in there. Patient had just urinated. There was no urinary retention. Minimal urine found in bladder. Reviewed that her CT showing no concerning changes, labs are reassuring. She has ibuprofen and Vicodin at home for pain management. We discussed relative rest, splinting with movement and trying an ice pack on the abdominal wall to see that may help. There is certainly no identifiable complications of her surgery at this time. Vital Signs Vital signs: Initial Vital Signs Temperature 97.5 F L 12/12/22 15:12 Temperature Source Temporal Artery Scan 12/12/22 15:12 Pulse Rate 106 H 12/12/22 15:12 Respiratory Rate 20 12/12/22 15:12 Blood Pressure 122/86 12/12/22 15:12 Blood Pressure Mean 98 12/12/22 15:12 Blood Pressure Position Standing 12/12/22 15:12 Pulse Oximetry 98 12/12/22 15:12 Oxygen Delivery Method Room Air 12/12/22 15:12 Vital Signs Temperature 97.5 F L 12/12/22 15:12 Pulse Rate 106 H 12/12/22 15:12 Respiratory Rate 20 12/12/22 15:12 Blood Pressure 122/86 12/12/22 15:12 Pulse Oximetry 98 12/12/22 15:12 Oxygen Delivery Method Room Air 12/12/22 15:12 Temperature 97.5 F L 12/12/22 15:12 Pulse Rate 75 12/12/22 18:30 Respiratory Rate 20 12/12/22 15:12 Blood Pressure 122/86 12/12/22 15:12 Pulse Oximetry 97 12/12/22 18:30 Oxygen Delivery Method Room Air 12/12/22 15:12 MDM - Abdominal Pain Lab Data Attestation: I reviewed the patient's lab results. Labs: Lab Results 12/12/22 Range/Units 16:30 WBC 8.81 (4.50-11.00) K/uL RBC 4.24 (4.00-5.20) m/uL Hgb 11.5 L (12.0-16.0) gm/dL Hct 35.6 (33.0-51.0) % MCV 84 (80-100) fL MCH 27 (26-34) pg MCHC 32 (32-36) gm/dL RDW Coeff of David 13.3 (11.5-15.5) % Plt Count 408 (140-440) K/uL Neut % (Auto) 61.4 (42.0-72.0) % Lymph % (Auto) 28.0 (20-44) % Hill % (Auto) 7.3 (0.0-11.0) % Eos % (Auto) 2.7 (0.0-7.0) % Baso % (Auto) 0.5 (0.0-3.0) % Neut # (Auto) 5.41 (1.7-7.0) K/uL Lymph # (Auto) 2.47 (0.90-2.90) K/uL Hill # (Auto) 0.60 (0.00-0.90) K/UL Eos # (Auto) 0.24 (0.00-0.50) K/uL Baso # (Auto) 0.04 (0.00-0.30) K/uL Abs Immat Gran (auto) 0.01 (0.00-0.30) K/uL Imm/Tot Granulo (auto) 0.1 % Sodium 138 (135-149) mmol/L Potassium 3.6 (3.6-5.1) mmol/L Chloride 105 (96-114) mmol/L Carbon Dioxide 24 (20-32) mmol/L BUN 8 (5-24) mg/dL Creatinine 0.8 (0.5-1.5) mg/dL Estimated Creat Clear 83.54 Estimated GFR 104 ml/min Glucose 113 (60-115) mg/dL Lactate 2.1 H (0.5-1.9) mmol/L Calcium 9.1 (8.4-10.6) mg/dL Total Bilirubin 0.3 (0.1-1.5) mg/dL AST 35 (12-35) U/L ALT 32 (4-35) U/L Alkaline Phosphatase 64 (40-150) U/L C-Reactive Protein 1.3 H (0.5-1.0) mg/dL Total Protein 7.7 (6.0-8.3) g/dL Albumin 4.2 (3.3-5.0) g/dL Imaging Data CT scan - abdomen: Attestation: I have reviewed the pertinent imaging results. Radiologist's impression: Patient: KAROLINE CASTANON Facility:?[facility] Patient ID:?[id number] Site Patient ID:?[id number]. Site :?[id number] Study:?CT Abdomen/Pelvis W/ ISOVUE 370-12/12/2022 5:26:26 PM Ordering Physician:?Viry Madsen Final Report: INDICATION: Increasing abdominal pain. Status post ectopic. COMPARISON: Ultrasound of the pelvis transvaginal from 12/09/2022. CT of the abdomen & pelvis with contrast from 03/07/2020. TECHNIQUE: CT examination of the abdomen and pelvis was performed with the uneventful intravenous administration of 80 cc of Isovue 370 while 3 mm thick axial sections were obtained from the lung bases through the pubic symphysis. Oral contrast was not administered. Please note that all CT scans at this facility use dose modulation, iterative reconstruction, and/or weight-based dosing when appropriate to reduce radiation dose to as low as reasonably achievable. FINDINGS: In the liver, there is a stable vague low density region in the medial segment of the left lobe of the liver adjacent to the falciform ligament, consistent with a hemangioma or focal fatty infiltration. This is a common incidental finding and requires no further followup. The rest of the liver is normal in appearance. The spleen, pancreas and adrenals are normal in appearance. The kidneys are normal in appearance. The gallbladder is normal in appearance. The abdominal aorta is normal in caliber with no sign of dilatation. There is no sign of retroperitoneal mass or adenopathy. The stomach, loops of small bowel, and colon in the abdomen are normal in appearance. There is new soft tissue stranding in the periumbilical region which may be from recent laparoscopic surgery. In the pelvis, the appendix is normal in appearance with no sign of inflammatory process. The loops of small bowel, colon, and rectum in the pelvis are normal in appearance. The uterus and adnexal regions are normal in appearance. Incidental note is made of nabothian cysts in the cervix. The left adnexal mass noted on the previous ultrasound is not present. There continues to be a small amount of free fluid in the cul-de-sac. There is a new small amount of air around the uterus consistent with recent surgery. The urinary bladder is normal in appearance. There is no sign of pelvic or inguinal mass or adenopathy. There is no sign of free air or free fluid in the abdomen. There is no sign of free air or extraluminal air in the pelvis. The lung bases are clear. The osseous structures are normal in appearance for the patient`s age. IMPRESSION: Nothing seen to explain the patient`s abdominal pain. No sign of bowel dilatation or inflammatory process involving the bowel. No sign of pancreatitis. CT of the pelvis shows no sign of any left adnexal mass to correlate with the history of the treated ectopic gestation. There is a small amount of air and located around the uterus consistent with recent surgery. The small amount of free fluid is unchanged. New soft tissue stranding in the periumbilical region consistent with a laparoscopic port. CT of the abdomen shows no significant abnormality. Please note that all CT scans at this facility use dose modulation, iterative reconstruction, and/or weight-based dosing when appropriate to reduce radiation dose to as low as reasonably achievable. Dictated by Chuy Brown MD @ 12/12/2022 6:18:50 PM (Electronic Signature) Discharge Plan Discharge Clinical Impression: Acute postoperative pain Patient Disposition: Home, Self-Care Condition: Stable Instructions: Pain Management After Surgery (DC) Additional Instructions: Continue with the hydrocodone/acetaminophen and ibuprofen per prescription instructions. Can try an ice pack to the abdominal wall as that may help decrease some of the pain and inflammation from the surgery. Do not lay ice directly on the skin, use a towel and can do intervals of 20 minutes of ice on, 10 minutes off. Continue with your postoperative recommendations as per the surgeon. Prescriptions: No Action hydrocodone-acetaminophen 7.5-325 mg Tablet 1 tab PO Q4H PRN (Reason: 4 OR GREATER ON PAIN SCALE) Qty: 25 0RF ibuprofen 600 mg Tablet 600 mg PO Q6H PRN (Reason: Pain) Qty: 60 0RF Follow Up/Referrals: Danielle Guardado PA-C [Primary Care Provider] - Stand Alone Forms: [employer] Info Instructions
--- NOTE | 2022-12-12 15:58 | CRLHL7_ITS ---
For Patients: As a result of the Century Cures Act, medical imaging exams and procedure reports are released immediately into your electronic medical record. You may view this report before your referring provider. If you have questions, please contact your health care provider. INDICATION: Increasing abdominal pain. Status post ectopic. COMPARISON: pelvis with contrast from 03/07/2020. TECHNIQUE: CT examination of the abdomen and pelvis was performed with the uneventful intravenous administration of 80 cc of Isovue 370 while 3 mm thick axial sections were obtained from the lung bases through the pubic symphysis. Oral contrast was not administered. Please note that all CT scans at this facility use dose modulation, iterative reconstruction, and/or weight-based dosing when appropriate to reduce radiation dose to as low as reasonably achievable. FINDINGS: In the liver, there is a stable vague low density region in the medial segment of the left lobe of the liver adjacent to the falciform ligament, consistent with a hemangioma or focal fatty infiltration. This is a common incidental finding and requires no further followup. The rest of the liver is normal in appearance. The spleen, pancreas and adrenals are normal in appearance. The kidneys are normal in appearance. The gallbladder is normal in appearance. The abdominal aorta is normal in caliber with no sign of dilatation. There is no sign of retroperitoneal mass or adenopathy. The stomach, loops of small bowel, and colon in the abdomen are normal in appearance. There is new soft tissue stranding in the periumbilical region which may be from recent laparoscopic surgery. In the pelvis, the appendix is normal in appearance with no sign of inflammatory process. The loops of small bowel, colon, and rectum in the pelvis are normal in appearance. The uterus and adnexal regions are normal in appearance. Incidental note is made of nabothian cysts in the cervix. The left adnexal mass noted on the previous ultrasound is not present. There continues to be a small amount of free fluid in the cul-de-sac. There is a new small amount of air around the uterus consistent with recent surgery. The urinary bladder is normal in appearance. There is no sign of pelvic or inguinal mass or adenopathy. There is no sign of free air or free fluid in the abdomen. There is no sign of free air or extraluminal air in the pelvis. The lung bases are clear. The osseous structures are normal in appearance for the patient`s age. IMPRESSION: Nothing seen to explain the patient`s abdominal pain. No sign of bowel dilatation or inflammatory process involving the bowel. No sign of pancreatitis. CT of the pelvis shows no sign of any left adnexal mass to correlate with the history of the treated ectopic gestation. There is a small amount of air and located around the uterus consistent with recent surgery. The small amount of free fluid is unchanged. New soft tissue stranding in the periumbilical region consistent with a laparoscopic port. CT of the abdomen shows no significant abnormality. Please note that all CT scans at this facility use dose modulation, iterative reconstruction, and/or weight-based dosing when appropriate to reduce radiation dose to as low as reasonably achievable. Dictated by Chuy Brown MD @ 12/12/2022 6:18:50 PM (Electronically Signed)
[2022-12-12 16:39] LABS: Lactate* 2.1 mmol/L (0.5-1.9)
[2022-12-12 16:42] LABS: Basophils Absolute Auto 0.04 K/uL (0.00-0.30); Basophils Percent Auto 0.5 % (0.0-3.0); Eosinophils Absolute Auto 0.24 K/uL (0.00-0.50); Eosinophils Percent Auto 2.7 % (0.0-7.0); Hematocrit 35.6 % (33.0-51.0); Hemoglobin* 11.5 gm/dL (12.0-16.0); Immature Granulocytes Abs Auto 0.01 K/uL (0.00-0.30); Immature Granulocytes Pct Auto 0.1 %; Lymphocytes Absolute Auto 2.47 K/uL (0.90-2.90); Mean Corpuscular HGB Conc 32 gm/dL (32-36); Mean Corpuscular Hemoglobin 27 pg (26-34); Mean Corpuscular Volume 84 fL (80-100); Monocytes Percent Auto 7.3 % (0.0-11.0); Neutrophils Absolute Auto 5.41 K/uL (1.7-7.0); Neutrophils Percent Auto 61.4 % (42.0-72.0); Platelet Count* 408 K/uL (140-440); RDW Coefficient of Variation % 13.3 % (11.5-15.5); Red Blood Count 4.24 m/uL (4.00-5.20); White Blood Count* 8.81 K/uL (4.50-11.00)
[2022-12-12 16:44] LABS: Slide Review Reflex No
[2022-12-12 16:55] LABS: Albumin* 4.2 g/dL (3.3-5.0); Chloride* 105 mmol/L (96-114); Sodium* 138 mmol/L (135-149)
[2022-12-12 16:56] LABS: Potassium* 3.6 mmol/L (3.6-5.1)
[2022-12-12 16:58] LABS: Aspartate Amino Transferase* 35 U/L (12-35); Bilirubin Total* 0.3 mg/dL (0.1-1.5); Carbon Dioxide* 24 mmol/L (20-32); Creatinine* 0.8 mg/dL (0.5-1.5); Est. Creatinine Clearance* 83.54; Estimated Glomerular Filt Rate 104 ml/min; Total Protein* 7.7 g/dL (6.0-8.3)
[2022-12-12 16:59] LABS: Alanine Aminotransferase* 32 U/L (4-35); Alkaline Phosphatase* 64 U/L (40-150); Blood Urea Nitrogen* 8 mg/dL (5-24); Calcium* 9.1 mg/dL (8.4-10.6); Glucose* 113 mg/dL (60-115)
[2022-12-12 17:01] LABS: C Reactive Protein* 1.3 mg/dL (0.5-1.0)
== END 2022-12-12 19:31 | disposition home or self-care (01) ==
PROVIDERS: Emergency Provider Family Medicine; PCP Physician Assistant Medical
DX: G89.18 Other acute postprocedural pain (principal); R10.30 Lower abdominal pain, unspecified
CPT/HCPCS: 36415; 51798; 74177; 80053; 83605; 85025; 86140; 94761; 99283; 99284; Q9967

== ENCOUNTER 2023-01-05 09:47 | Outpatient (CLI) | payer BC, SELFPAY ==
[2023-01-05 15:40] LABS: Chlamydia DNA Amplified* NOT DETECTED (No Detected); GC DNA Amplified* NOT DETECTED (No Detected)
== END 2023-01-05 09:48 | disposition home or self-care (01) ==
PROVIDERS: PCP Physician Assistant Medical; Visit Provider Obstetrics & Gynecology
DX: R10.2 Pelvic and perineal pain (principal)
CPT/HCPCS: 87086; 87491; 87591

== ENCOUNTER 2023-01-18 13:09 | Emergency (ER) | payer BC, SELFPAY ==
[2023-01-18 13:34] VITALS: BP 133/100; PULSE 100; RESP 18; TEMP 36.4; O2SAT 98; BMI 31.1
--- NOTE | 2023-01-18 13:43 | CRLHL7_ITS ---
For Patients: As a result of the Cures Act, medical imaging exams and procedure reports are released immediately into your electronic medical record. You may view this report before your referring provider. If you have questions, please contact your health care provider. Indication: Injury Comparison: None available. Technique: AP, Lateral, and Oblique views left ankle ankle were obtained Findings: There is no displaced fracture or dislocation. The ankle mortise is symmetrical. The talar dome is smooth and intact. The joint spaces are otherwise grossly preserved. There is moderate bimalleolar soft tissue swelling. Impression: Moderate bimalleolar soft tissue swelling without evidence of displaced fracture. Dictated by Garth Hinson MD @ 01/18/2023 3:26:53 PM (Electronically Signed)
--- NOTE | 2023-01-18 13:43 | ED_ITS ---
HPI - Extremity Injury (Lower) General Chief Complaint: Extremity Pain/Injury, Lower Stated Complaint: Injury L ankle Time Seen by Provider: 01/18/23 13:40 History of Present Illness HPI Narrative: This 27-year-old female comes in with an injury to her left ankle. She was at a parade and stepped in the wrong place and twisted her left ankle. She did not have any other injury. She has pain and swelling on the lateral aspect of her left ankle. Related Data Previous Rx's Medication Instructions Recorded ibuprofen 600 mg tablet 600 mg PO Q6H PRN Pain #60 tabs 12/09/22 methocarbamol 500 mg tablet 1,000 mg (2 x 500 mg) PO TID #20 01/06/23 tabs Allergies Allergy/AdvReac Type Severity Reaction Status Date / Time yellow dye Allergy Unknown Rash Verified 01/18/23 13:33 Sulfa (Sulfonamide Allergy Verified 01/18/23 13:33 Antibiotics) Review of Systems Status of ROS: Reports: 10 or more systems reviewed and unremarkable except as noted in History and below Narrative: Constitutional: No fevers, no weight gain or loss. Eyes: No discharge. No vision changes. HENT: No congestion, no sore throat, no ear pain. Cardiovascular: No chest pain, no palpitations. Respiratory: No shortness of breath, no wheezes, no cough. Gastrointestinal: No abdominal pain, no vomiting, no diarrhea. Genitourinary: No dysuria, no hematuria. Musculoskeletal: Left ankle injury. Skin: No rashes, no pruritis. Neurological: No dizziness, weakness, sensory change, speech change. Endo/Heme/Allergies: No bruising or bleeding. No polydipsia. Pysch: no suicidality, no anxiety, no insomnia. All other systems reviewed and are negative. [facility] Medical History (Updated 01/18/23 @ 15:02 by Shay Newman MD) History of vaginal delivery History of gestational hypertension ?Z87.59 - Personal history of other complications of , childbirth and the puerperium (ICD-10) History of gestational diabetes ?Z86.32 - Personal history of gestational diabetes (ICD-10) Surgical History (Updated 12/31/22 @ 15:15 by Keira Mccabe) Ectopic ?O00.90 - Unspecified ectopic without intrauterine (ICD- 10) S/P breast lumpectomy (11/22/20) ?Z98.890 - Other specified postprocedural states (ICD-10) Family History (Updated 12/31/22 @ 15:16 by Keira Mccabe) Other Family history not known due to adoption Social History What is your current living situation?: I presently have a place to live Problems where you live: no known problems In the past 12 months, utilities in danger of being shut off: no In the past 12 mos, have been you worried that your food would run out before you had money to buy more?: never true In the past 12 mos, the food you bought just didn't last and you didn't have money to buy more?: never true Smoking Status: Current some day smoker Do you use any of these nicotine containing products: E-Cigarettes How often do you have a drink containing alcohol: monthly or less AUDIT-C Alcohol total score: 1 Non-prescribed substance use: denies use How often does anyone, including family, friends and others, physically hurt you : never How often does anyone, including family, friends and others, insult or talk down to you: never How often does anyone, including family, friends and others, threaten you with harm: never How often does anyone, including family, friends and others, scream or curse at you: never Exam Narrative: Exam Narrative: Constitutional: Well-developed, well-nourished, no acute distress. HEENT: Normocephalic, atraumatic. Neck: Normal range of motion. Nontender. Supple. Heart: Intact distal pulses. Lungs: No chest discomfort. No wheezes, rhonchi, or rales. Abdomen: Nontender. Back: Normal range of motion. Extremities: Mild swelling over the lateral aspect of the left lateral malleolus of the ankle. No joint effusion or ligament instability. Skin: Intact. No rash. Warm. No erythema or pallor. Neurologic: No altered sensation. No weakness. Alert and oriented. Psychiatric: No suicidality. No anxiety or depression. No insomnia. Nursing notes and vitals signs are reviewed. Const: Vital Signs, click to edit/add: Vital Signs - 24 hr 01/18/23 13:34 Temperature 97.6 F Pulse Rate [Pulse Oximeter] 100 Respiratory Rate 18 Blood Pressure [Le ft Upper Arm] 133/100 H Pulse Oximetry 98 Oxygen Delivery Me thod Room Air Course Vital Signs Vital signs: Initial Vital Signs Temperature 97.6 F 01/18/23 13:34 Temperature Source Temporal Artery Scan 01/18/23 13:34 Pulse Rate 100 01/18/23 13:34 Respiratory Rate 18 01/18/23 13:34 Blood Pressure 133/100 H 01/18/23 13:34 Blood Pressure Mean 111 H 01/18/23 13:34 Blood Pressure Position Sitting 01/18/23 13:34 Pulse Oximetry 98 01/18/23 13:34 Oxygen Delivery Method Room Air 01/18/23 13:34 Vital Signs Temperature 97.6 F 01/18/23 13:34 Pulse Rate 100 01/18/23 13:34 Respiratory Rate 18 01/18/23 13:34 Blood Pressure 133/100 H 01/18/23 13:34 Pulse Oximetry 98 01/18/23 13:34 Oxygen Delivery Method Room Air 01/18/23 13:34 Temperature 97.6 F 01/18/23 13:34 Pulse Rate 100 01/18/23 13:34 Respiratory Rate 18 01/18/23 13:34 Blood Pressure 133/100 H 01/18/23 13:34 Pulse Oximetry 98 01/18/23 13:34 Oxygen Delivery Method Room Air 01/18/23 13:34 MDM - Extremity Injury (Lower) MDM Narrative Medical decision making narrative: This patient comes in for evaluation of an injury to her left ankle. X-ray images by my review with radiology report pending show no evidence of fracture or dislocation. Patient did receive crutches to assist with ambulating but is encouraged to increase activity as tolerated. She can also use [id number] medicines also as needed and directed. Discharge Plan Discharge Clinical Impression: Ankle sprain and strain Patient Disposition: Home, Self-Care Condition: Unchanged Additional Instructions: Use crutches as needed. Increase activity as tolerated. Use [id number] medicines as needed and directed. Follow up with MD return if worsening. Prescriptions: No Action ibuprofen 600 mg Tablet 600 mg PO Q6H PRN (Reason: Pain) Qty: 60 0RF methocarbamol 500 mg tablet 1,000 mg PO TID Qty: 20 0RF Follow Up/Referrals: Danielle Guardado PA-C [Primary Care Provider] - Stand Alone Forms: [employer] Info Instructions
== END 2023-01-18 15:15 | disposition home or self-care (01) ==
PROVIDERS: Emergency Provider Emergency Medicine Emergency Medical Services; PCP Physician Assistant Medical
DX: S93.402A Sprain of unspecified ligament of left ankle, initial encounter (principal); W01.0XXA Fall on same level from slipping, tripping and stumbling without subsequent striking against object, initial encounter; Y93.01 Activity, walking, marching and hiking
CPT/HCPCS: 73610; 99283; 99284

== ENCOUNTER 2023-06-25 13:59 | Outpatient (CLI) | payer BC, SELFPAY ==
--- NOTE | 2023-06-25 14:00 | US_ITS ---
Patient: KAROLINE CASTANON Facility:?[facility] Patient ID:?[id number] Site Patient ID:?[id number]. Site :?1995 Study:?US-Pelvis -06/25/2023 3:01:45 PM Ordering Physician:?Rosalva Young Final Report: INDICATION: Abnormal vaginal bleeding. TECHNIQUE: Transabdominal and transvaginal ultrasound examination of the pelvis was performed. Grayscale and color Doppler images were obtained. COMPARISON: Transvaginal pelvic ultrasound 12/09/2022. FINDINGS: Uterus: Measures 9.1 x 7.0 x 6.7 cm. Normal in echotexture. No suspicious masses. Endometrium: 13 mm. No significant endometrial free fluid. There is an anechoic cystic like structure within the cervix measuring 1.5 x 1.3 x 1.0 cm., Possibly a nabothian cyst. There is no suspicious associated vascularity. Right Ovary: Measures 2.2 x 2.0 x 1.5 cm. No suspicious masses. Normal arterial and venous flow on color Doppler imaging. Left ovary: Measures 3.3 x 1.4 x 1.8 cm. No suspicious masses. Normal arterial and venous flow on color Doppler imaging. Cul-de-sac: No free fluid. IMPRESSION: Unremarkable pelvic ultrasound examination. The etiology of the patient`s pain is not elucidated on this examination. Dictated by Joesph Solomon MD @ 06/25/2023 11:30:54 PM Signed by:?Joesph Solomon MD @06/25/2023 11:30:54 PM (Electronic Signature)
--- OUTSIDE RECORDS SUMMARY | 2023-06-25 14:01 | XMS_ITS | Clinical Summary ---
Author Name Unknown [facility] Address [address] [place] [address] Care Team Providers Care Medical Center Representative Name Role Phone Wilfredo Anders MD Primary Care Provider [phone] Source Comments You are receiving this document as you are listed as the primary care provider,follow-up provider, or the patient has been referred to you for consultation.This is in compliance with the Medicare and[facility] E[facility] Incentive Program,which states Providers who transition their patient to another setting of careor provider of care or refers their patient to another provider of care shouldprovide summary care record for each transition of care or referral. [facility] Allergies Active Allergy Reactions Criticality Noted Date Comments Sulfamethoxazole-Trimethoprim Unknown 2013 Sulfamethoxazole-Trimethoprim Chest Pain 2013 Yellow Dye Rash 10/11/2013 Medications Medication Sig Dispensed Refills Start Date End Date Status busPIRone (BUSPAR) 10 MG tablet Take 1 Tab by mouth two times a day. 60 Tab 2 02/22/2016 Active Additional Information Patient not taking.Reported on 09/12/2020 guaiFENesin-codeine (ROBITUSSINAC) 100-10 MG/5ML solution Take 10 mL by mouth every 4 hours as needed. 120 mL 0 03/04/2016 Active Additional Information Patient not taking.Reported on 05/13/2017 escitalopram oxalate (LEXAPRO) 20 MG tablet Take 20 mg by mouth daily. 09/06/2020 Active hydrOXYzine HCl (ATARAX) 25 MG tablet TAKE ONE TABLET BY MOUTH EVERY SIX HOURS NEEDED FOR ITCHING 09/06/2020 Active Active Problems Problem Noted Date Diagnosed Date Mental disorder of mother, 02/22/2016 Overview: Son Luís born September 2015 Anxiety disorder 02/22/2016 Overview: Anxiety disorder NOS Depression 02/22/2016 Overview: Depression NOS Alcohol use disorder, mild, in sustained remissi on, abuse 02/22/2016 Cluster B personality disorder 02/22/2016 Overview: Cluster B personality traits Insulin controlled gestation al diabetes mellitus in third trimester 12/13/2015 Gestational hypertension 12/13/2015 Concussion with no loss of consciousness 012 Oppositional defiant disorder 09/08/2009 Overview: Oppositional defiant disorder of childhood or adolescence Parent-child conflict 12/14/2008 Depressive disorder 10/30/2008 Overview: Depressive disorder, not elsewhere classified Attention deficit hyperactivity disorder (ADHD) 10/30/2008 Overview: Attention deficit disorder with hyperactivity(314.01) Immunizations Name Administration Dates Next Due 4vHPV (Gardasil) 12/24/2007,09/02/2007, 8 DTP 05/15/2005,1995,1995 DTP-Hib (Tetramune) 05/26/1996 DTaP 05/22/2006,02/26/1999 Flu Vac (3+ yrs) 02/10/2012, 1,04/03/2010,04/20/2009 ,03/07/2008,04/10/2007,03/21/2006, 5 HepA Ped/Adol (1-18 yrs) 06/28/2007,05/22/2006 HepB Ped/Adol (0-18 yrs) 10/06/1996,04/22/1996,1 1995 Hib (HbOC) 03/14/1996 IPV (Polio) 02/26/1999 Influenza [id number] 04/20/2009 MCV4 (Menactra) 05/22/2006 MMR 02/26/1999,05/26/1996 OPV, Trivalent (Orimune or tOPV) 1995,06/1995,1995 Varicella 05/22/2006,05/20/1996,1995 Family History * Patient is adopted Medical History Relation Name Comments Hyperlipidemia Mother Hypertension Mother Relation Name Status Comments Mother Social History Tobacco Use Types Packs/Day Years Used Date Smoking Tobacco: Every Day Cigarettes Smokeless Tobacco: Never Tobacco Cessation:Ready to Q uit: No Comments:1 cigarette qod per pt Alcohol Use Standard Drinks/Week Comments Yes 0 (1 standard drink = 0.6 oz pur e alcohol) occasional Sex and Gender Information Value Date Recorded Sex Assigned at Not on file Gender Identity Not on file Sexual Orientation Not on file Last Filed Vital Signs Vital Sign Reading Time Taken Comments Blood Pressure 112/59 05/13/2017 5:06 PM IMMIGRATION LAWYER Pulse 73 05/13/2017 5:06 PM IMMIGRATION LAWYER Temperature 37 ??C (98.6 ??F) 02/20/2016 11:23 AM CDT Respiratory Rate 18 02/14/2016 7:07 PM CDT Oxygen Saturation 100% 02/14/2016 7:07 PM CDT Inhaled Oxygen Concentration - - Weight 72.6 kg (160 lb) 09/12/2020 9:49 AM CDT P t reported Height 152.4 cm (5') 03/04/2016 1:33 PM CDT Body Mass Index 31.25 03/04/2016 1:33 PM CDT Plan of Treatment Health Maintenance Due Date Last Done Comments Cervical Cancer Screening Due 1995 Hep C Screening (Preventive Services) 1995 COVID-19 Vaccine (#1) 1995 Pneumococcal (1 - PCV) 2001 HIV Screening (Preventive Services) 2011 Adult Preventive Visit 2013 Influenza (#1) 2023 03/21/2020, 02/09, 07/31/2015, Additional history exists DTaP/Tdap/Td (10 - Tdap) 08/20/2028 019, 05/21/2015, 12/27/2013, Additional history exists Zoster/Shingles (1 of 2) 2045 Hib Completed 05/26/1996, 03/14/1996 HepB Completed 10/06/1996, 04/10, 03/14/1996 IPV (Polio) Completed 02/26/1999, 07/1995, 1995, Additional history exists MCV4 Aged Out 05/22/2006 No longer eligi ble based on patient's age to complete this topic Varicella Completed 05/22/2006, 05/11, 1995 HepA Completed 06/28/2007, 05/11, 05/22/2006 HPV Vaccine Completed 07/21/2011 (Comp leted), 12/24/2007, 09/02/2007, Additional history exists Chlamydia Discontinued 06/26/2013, 04/04/2013 Procedures Procedure Name Priority Date/Time Associated Diagnosis Comments SEXUALLY TRANSMITTED DISEASE PROBE STAT 06/26/2013 4:09 AM IMMIGRATION LAWYER from Last 3 Months or Most Recently Relevant to Health Maintenance Results * SEXUALLY TRANSMITTED DISEASE PROBE (06/26/2013 4:09 AM IMMIGRATION LAWYER) Source Urine for molecular testing HP CONVERSION Site HP CONVERSION Chlamydia Trach DNA Chlamydia trachomatis NEGATIVE by DNA amplification HP CONVERSION GC DNA Neisseria gonorrhea NEGATIVE by DNA amplification. HP CONVERSION Urine for molecular testin06/26/2013 4:09 AM IMMIGRATION LAWYER Vidal Thompson MD LAB_1 HP CONVERSION from Last 3 Months or Most Recently Relevant to Health Maintenance Care Teams Medical Center Representative Relationship Specialty Start Date End Date Wilfredo Anders MD [address] [place] [address] PCP - General 12/11/15
--- OUTSIDE RECORDS SUMMARY | 2023-06-25 14:01 | XMS_ITS | Clinical Summary ---
Author Name Unknown Organization [facility] Address [place], [place] [address] Care Team Providers Care Streetcar Repairer Name Role Phone Danielle Guardado Primary Care Provider Allergies Active Allergy Reactions Criticality Noted Date Comments Sulfamethoxazole-Trime thoprim Chest Pain 10/11/2013 Oxycodone Other - Describe In Comment Field 12/04/2020 Dizzy--nauseated D And C Yellow No.10 Rash 10/11/2013 Medications No known medications Active Problems Problem Noted Date Diagnosed Date Concussion with no loss of consciousness 012 Oppositional defiant disorder of childhood or ad olescence 09/08/2009 Parent-child conflict 12/14/2008 Attention deficit disorder with hyperactivity(31 4.01) 10/30/2008 Depressive disorder, not elsewhere classified Pap smear for cervical cancer screening Overview: Plan: Pap due 09/2024 Resolved Problems Problem Noted Date Diagnosed Date Resolved Date Essential (hemorrhagic) thrombocythemia 08/16/2021 08/16/2021 Cluster B personality disorder 08/16/2021 08/16/2021 Immunizations Name Administration Dates Next Due AMB Influenza, IIV3 (Age >=3 years)(Flu Clinic Only) 04/03/2010,03/07/2008 DTP 05/15/2005,1995,1995 DTP-HIB 05/26/1996 DTaP 05/22/2006,02/26/1999 HIB HbOC (HibTITER) 03/14/1996 Hepatitis A (Adult) 05/22/2006 Hepatitis A (Peds) 06/28/2007,05/22/2006 Hepatitis B (Peds) 10/06/1996,04/22/1996, 996 Human Papilloma Virus Vaccine 12/24/2007, 008,06/28/2007 08/27/2007 Inactivated Polio Vaccine 02/26/1999 Influenza A (H1N1), Inactivated 04/20/2009 Influenza A (H1N1), Inactiva leticia (Age >=3 Years) 04/20/2009 Influenza, IIV3 (Age 6-35 mos) 02/26/2011,2008 Influenza, IIV3 (Age >=3 years) 02/10/20 12,02/26/2011,04/20/2009,05/2006,03/21/2006,03/15/2005 Influenza, IIV4 03/21/2020,03/01/2018,07/31/2015 MMR 02/26/1999,05/26/1996 Meningococcal Vaccine (Menactra) 05/22/2006 Oral Polio Vaccine 1995,1995, 996 Tdap 08/20/2018, 6,12/27/2013,05/11 Varicella Vaccine 05/22/2006,05/20/1996,05/26/18 96 Family History * Patient is adopted Medical History Relation Name Comments Hyperlipidemia Mother Hypertension Mother Relation Name Status Comments Mother Social History Tobacco Use Types Packs/Day Years Used Date Smoking Tobacco: Former Smokeless Tobacco: Never Tobacco Cessation:Counseling Given: Yes Comments:using ecig Alcohol Use Standard Drinks/Week Comments Yes 0 (1 standard drink = 0.6 oz pur e alcohol) occasional PHQ-2 Answer Date Recorded PHQ-2 TOTAL SCORE 5 09/06/2020 Social Connections Answer Date Recorded Frequency of Communication with Friends and Fami ly 0 02/18/2023 Financial Resource Strain Answer Date R ecorded Difficulty of Paying Living Expenses 3 02/18/2023 Difficulty of Paying Living Expenses Not on file 02/18/2023 Food Insecurity Answer Date Recorded Worried About Running Out of Food in the Last Ye ar 1 02/18/2023 Transportation Needs Answer Date Record ed Lack of Transportation (Medical) 1 02/18/2023 Housing Stability Answer Date Recorded Unable to Pay for Housing in the Last Year 1 02/18/2023 Sex and Gender Information Value Date Recorded Sex Assigned at Not on file Gender Identity Not on file Sexual Orientation Not on file Obstetrics History Para Term AB IAB SAB Ectopic Multiple Livin g Live Births 3 2 2 2 2 Date Outcome GA Total Labor Labor/2nd/3rd Weight Sex Delivery Anes PTL Rufina A1 A5 Name Cl in Comments:System Genera leticia. Please review and update details. 2013 Term Astrid calero Meño 09/28 15 Term Astrid calero Luís Last Filed Vital Signs Vital Sign Reading Time Taken Comments Blood Pressure 128/89 02/18/2023 2:29 PM CDT Pulse 107 02/18/2023 2:29 PM CDT Temperature 36.8 ??C (98.2 ??F) 09/09/2021 1:59 PM CD T Respiratory Rate 18 10/12/2017 10:3 2 PM CDT Oxygen Saturation 98% 02/18/2023 2:29 PM CDT Inhaled Oxygen Concentration - - Weight 77.6 kg (171 lb 1.6 oz) 02/18/2023 2:29 P M CDT with boot Height 156 cm (5' 1.42) 10/29/2021 11: 22 AM CDT Body Mass Index 31.89 10/29/2021 11:22 AM CDT Plan of Treatment Health Maintenance Due Date Last Done Comments COVID-19 vaccine series (#1) 1995 Depression screening for age 12+ 09/07/2021 09/07/2020, 09/06/2020, 08/01/2020, Additional history exists BMI (ht and wt on same day) for age 18+ 10/29/2022 10/29/2021, 08/16/2021, 12/04/2020, Additional history exists Influenza for age 9-49 01/09/2023 0, 03/01/2018, 07/31/2015, Additional history exists Pap test for age 21-65 01/05/2026 3, 01/05/2023, 09/09/2021, Additional history exists Tetanus booster 08/20/2028 08/20/2018, 05/11, 12/27/2013, Additional history exists HIV for age 15-65 Completed 11/27/2009 Hepatitis C screening for age 18-79 Completed 11/27/2009 Tdap Completed 08/20/2018, 05/11, 12/27/2013, Additional history exists Pneumococcal series for age 6-64 Aged Out No longer eligible based on patient's age to complete this topic Care Teams Streetcar Repairer Relationship Specialty Start Date End Date Danielle Guardado PA [address] [place] [address] PCP - General Physician Motorcycle Repair Shop Supervisor 08/21/21
== END 2023-06-25 14:00 | disposition home or self-care (01) ==
LOC: US 14:00
PROVIDERS: PCP Physician Assistant Medical; Visit Provider Obstetrics & Gynecology
DX: N93.9 Abnormal uterine and vaginal bleeding, unspecified (principal); N80.9 Endometriosis, unspecified
CPT/HCPCS: 76830; 76856; 93976

== ENCOUNTER 2023-09-24 10:10 | Day surgery (SDC) | payer BC, SELFPAY ==
[2023-09-24] VITALS (21 sets, daily range): BP systolic 100–135; BP diastolic 54–82; PULSE 81–109; RESP 12–24; TEMP 35.8–37.1; O2SAT 95–100; BMI 32.0
--- OUTSIDE RECORDS SUMMARY | 2023-09-24 10:14 | XMS_ITS | Clinical Summary ---
Author Name Unknown Organization [facility] Address [address] [place] [address] Care Team Providers Care Registered Phlebotomist Part Time Name Role Phone Wilfredo Anders MD Primary Care Provider [phone] Source Comments You are receiving this document as you are listed as the primary care provider,follow-up provider, or the patient has been referred to you for consultation.This is in compliance with the Medicare and[facility] EHR Incentive Program,which states Providers who transition their patient to another setting of careor provider of care or refers their patient to another provider of care shouldprovide summary care record for each transition of care or referral. [facility] Allergies Active Allergy Reactions Criticality Noted Date [...] Hib (HbOC) 03/14/1996 IPV (Polio) 02/26/1999 Influenza [id number] 04/20/2009 MCV4 (Menactra) 05/22/2006 MMR 02/26/1999,05/26/1996 OPV, [...] Comments Blood Pressure 112/59 05/13/2017 5:06 PM CORRECTIONS OFFICER Pulse 73 05/13/2017 5:06 PM CORRECTIONS OFFICER Temperature 37 ??C (98.6 ??F) 02/20/2016 11:23 [...] 1995 Hep C Screening (Preventive Services) 1995 Pneumococcal (1 - PCV) 2001 HIV Screening (Preventive Services) 2011 Adult Preventive Visit 2013 COVID-19 Vaccine ( - season) 2023 Influenza (Season Ended) 2024 020, 03/01/2018, 07/31/2015, Additional history exists DTaP/Tdap/Td (10 - Tdap) 08/20/2028 019, 05/21/2015, 12/27/2013, Additional history exists Zoster/Shingles (1 of 2) 2045 Hib Completed 05/26/1996, 03/14/1996 HepB Completed 10/06/1996, 04/10, 03/14/1996 IPV (Polio) Completed 02/26/1999, 07/1995, 1995, Additional history exists MCV4 Aged Out 05/22/2006 No longer eligi ble based on patient's age to complete this topic Varicella Completed 05/22/2006, 05/11, 1995 HepA Completed 06/28/2007, 05/22/2006 HPV Vaccine Completed 07/21/2011 (Comp leted), 12/24/2007, 09/02/2007, Additional history exists Chlamydia Discontinued 06/26/2013, 04/04/2013 Procedures Procedure Name Priority Date/Time Associated Diagnosis Comments SEXUALLY TRANSMITTED DISEASE PROBE STAT 06/26/2013 4:09 AM CORRECTIONS OFFICER from Last 3 Months or Most Recently Relevant to Health Maintenance Results * SEXUALLY TRANSMITTED DISEASE PROBE (06/26/2013 4:09 AM CORRECTIONS OFFICER) Source Urine for molecular testing HP CONVERSION Site HP CONVERSION Chlamydia Trach DNA Chlamydia trachomatis NEGATIVE by DNA amplification HP CONVERSION GC DNA Neisseria gonorrhea NEGATIVE by DNA amplification. HP CONVERSION Urine for molecular testin06/26/2013 4:09 AM CORRECTIONS OFFICER Vidal Thompson MD LAB_1 HP CONVERSION from Last 3 Months or Most Recently Relevant to Health Maintenance Care Teams Registered Phlebotomist Part Time Relationship Specialty Start Date End Date Wilfredo Anders MD [address] [place] [address] PCP - General 12/11/15
--- OUTSIDE RECORDS SUMMARY | 2023-09-24 10:14 | XMS_ITS | Clinical Summary ---
Author Name Unknown Organization [facility] Address [place], [place] [address] Care Team Providers Care Cardiac Cath Tech Name Role Phone Danielle Guardado Primary Care [...] 08/16/2021 Cluster B personality disorder 08/16/2021 08/16/2021 Encounters Date Type Department Care Team Description 07/24/2023 2:00 PM CDT Office Visit [facility] [address] [facility] [place] [id number] Lynette Moore MD Throat Pain/problem (Sore throat, cough and low grade fever 100.9 and lost voice x 4 days ) 07/24/2023 Travel from Last 3 Months Immunizations Name Administration Dates Next Due AMB [...] 02/26/2011,2008 Influenza, IIV3 (Age >=3 years) 02/10/20 12,02/26/2011,04/20/2009,12/0 05/2006,03/21/2006,03/15/2005 Influenza, IIV4 03/21/2020,03/01/2018,07/31/2015 MMR 02/26/1999,05/26/1996 Meningococcal Vaccine [...] Sign Reading Time Taken Comments Blood Pressure 129/84 07/24/2023 2:18 PM CDT Pulse 106 07/24/2023 2:18 PM CDT Temperature 37.1 ??C (98.7 ??F) 07/24/2023 2:18 PM CD T Respiratory Rate 18 10/12/2017 10:32 PM CDT Oxygen Saturation 98% 07/24/2023 2:18 PM CDT Inhaled Oxygen Concentration - - Weight 78.9 kg (174 lb) 07/24/2023 2:18 PM CDT Height 156 cm (5' 1.42) 10/29/2021 11:22 AM CDT Body Mass Index 32.43 10/29/2021 11:22 AM CDT Plan of Treatment Health Maintenance Due Date Last Done Comments Depression screening for age 12+ 09/07/2021 09/07/2020, 09/06/2020, 08/01/2020, Additional history exists BMI (ht and wt on same day) for age 18+ 10/29/2022 10/29/2021, 08/16/2021, 12/04/2020, Additional history exists COVID-19 vaccine series (2022- season) 2023 Influenza for age 9-49 01/10/2024 0, 03/01/2018, 07/31/2015, Additional history exists Pap [...] on patient's age to complete this topic Procedures Procedure Name Priority Date/Time Associated Diagnosis Comments THROAT RAPID STREP ONLY CLINIC Routine 07/24/2023 2:20 PM CDT Sore throat HPV THIN PREP Routine 01/05/2023 12:00 PM CDT ANTI HIV 1/2 Routine 11/27/2009 7:21 PM CDT Screen for STD (sexually transmitted disease) ANTI HCV Routine 11/27/2009 7:21 PM CDT Screen for STD (sexually transmitted disease) from Last 3 Months or Most Recently Relevant to Health Maintenance Results * THROAT RAPID STREP ONLY CLINIC (07/24/2023 2:20 PM CDT) THROAT RAPID STREP A ANTIGEN Negative 07/24/2023 2:35 PM CDT [facility] Throat SPECIMEN FROM THROAT / Unknown Non-Blood / Unknown 07/24/2023 2:20 PM CDT 07/24/2023 2:24 PM CDT Lynette Moore MD MICROBIOLOGY [facility] [address] [place] [address], [place] [phone] * HPV HIGH RISK (01/05/2023 12:00 PM CDT) TYPE 16 Negative Negative 01/08/2023 5:01 PM CDT [facility] TYPE 18 Negative Negative 01/08/2023 5:01 PM CDT [facility] OTHER HIGH RISK TYPES Negative Negative 01/08/2023 5:01 PM CDT [facility] Other (Cervical) 01/05/2023 12:00 PM CDT 01/06/2023 8:47 AM CDT Narrative [facility] - 01/08/2023 5:01 PM CDT HPV types 16, 18, 31, 33, 35, 39, 45, 51, 52, 56, 58, 59, 66 and 68 DNA were undetectable or below the pre-set threshold. Methodology: Cassidy Tonya 4800 HPV Test Jenna Young MD MICROBIOLO GY [facility] [address] [place] [address], * ANTI HCV (11/27/2009 7:21 PM CDT) ANTI HCV Non-reacti ve [facility] Blood specimen (specimen) BLOOD SPECIMEN / Unknown 11/27/2009 7:21 PM CDT 11/27/2009 7:11 PM CDT Danielle GARRIDO SEND OUTS [facility] INTERNAL ZIP [id number] [place] [address] * ANTI HIV 1/2 (11/27/2009 7:21 PM CDT) ANTI HIV 1/2 Non-reacti ve [facility] Blood specimen (specimen) BLOOD SPECIMEN / Unknown 11/27/2009 7:21 PM CDT 11/27/2009 7:11 PM CDT Danielle GARRIDO SEND OUTS [facility] INTERNAL ZIP [address] [facility] [address] [address] from Last 3 Months or Most Recently Relevant to Health Maintenance Care Teams Cardiac Cath Tech Relationship Specialty Start Date End Date Danielle Guardado PA [address] [place] [address] PCP - General Physician Senior Project Manager 08/21/21
[2023-09-24] MEDS: LACTATED RINGERS 1000 ML 1,000 ML 100 ML IV ×2 (10:15→13:41)
[2023-09-24 10:55] LABS: Hemoglobin* 13.1 gm/dL (12.0-16.0)
[2023-09-24 10:56] LABS: Ur HCG Qualitative* Negative (Negative)
[2023-09-24] MEDS: SODIUM CHLORIDE 0.9 % (FLUSH) 10 ML SYRINGE IVF (11:09)
--- NOTE | 2023-09-24 11:09 | SUR.PREOP ---
pt has a raised red rash on her jawline on the left side. She thinks it's from yellow dye from yellow jello she ate yesterday
[2023-09-24 11:16] LABS: Creatinine* 0.7 mg/dL (0.5-1.5); Est. Creatinine Clearance* 90.29; Estimated Glomerular Filt Rate 121 ml/min
--- NOTE | 2023-09-24 11:43 | W.PM.H&PU ---
History & Physical Update History & Physical Update H&P Reviewed and patient assessed: No changes noted
[2023-09-24] MEDS: CEFAZOLIN 2 GM INJ IVP (12:38)
--- NOTE | 2023-09-24 12:53 | W.PM.NB ---
Nerve Block Nerve Block Time Seen by Provider: 12:14 Date Seen: 09/24/23 Type of block requested by surgeon for post-operative analgesia: TAP Side: bilateral Time out performed: Yes Verification of patient name: Yes Verification of date of : Yes Site marking: site marked Name of person performing procedure: Larry Continuous monitoring Was continuous monitoring of O2 sat, B/P, fiber artist, recorded every 15 minutes?: Yes Procedure Checklist: sterile prep, needles and gloves Ultrasound guided. Images saved: Yes Medications given in 5ml increments after negative aspiration: Marcaine %: 0.25 mL: 30 Needle gauge: 20 and Exparel mL: 10 Patient tolerated procedure well: Yes Additional comments: Needle noted between internal oblique and transversus abdominus. Local spread visualized Block Charges Block Charge (with Pro Fee): TAP Bilateral Use of Ultrasound Machine for Block: Yes- US Guidance/pain block
--- NOTE | 2023-09-24 12:53 | W.ANESCHARGE ---
Anesthesia Charges Start Date/Time Anesthesia Start Date: 09/24/23 Anesthesia Start Time: 12:04 Stop Date/Time Anesthesia Stop Date: 09/24/23 Anesthesia Stop Time: 15:16
[2023-09-24] MEDS: BUPIVACAINE 0.25% 30 ML INJECTION (13:04)
--- NOTE | 2023-09-24 15:17 | P.GYNPRC_ITS ---
Procedure Note Date of procedure: 09/24/23 Will [facility] bill your pro fee for this procedure?: Yes Pre-op diagnosis: Abnormal uterine bleeding, chronic pelvic pain Post-op diagnosis: Abnormal uterine bleeding, chronic pelvic pain Procedure: Total laparoscopic hysterectomy, cystoscopy Anesthesia: GETA Complications: None Surgeon: Jhony Young MD Pusher Operator: Laura Longo Estimated blood loss (mL): 100 IV fluids (mL): 1,000 Urine Output (mL): 300 Pathology: specimen obtained, sent to pathology (Uterus 175g) Condition: stable Disposition: floor Findings: Normal external genitalia. Speculum exam: multiparous and large cervix, no gross lesions or abnormal lesions. Uterine sound: 9cm. Intra abdominal survey: Perihepatic thin adhesions again noted, otherwise grossly normal stomach, appendix and visualized intestine. Uterus large and boggy of about 10cm. Evidence of bilateral salpingectomy. Ovaries grossly normal. No evidence of endometriosis. thin adhesions of the sigmoid colon to the left pelvic side wall. Cystoscopy: Gas bubbles noted at dome, mucosa free of lesions or suture material, bilateral ureteral jets normal. Procedure Description: DESCRIPTION OF PROCEDURE: After obtaining informed consent, the patient was taken to the operating room where general anesthesia was obtained without difficulty. She was prepared and draped in the normal sterile fashion in the low dorsal lithotomy position. A Weiss catheter was inserted into the bladder and left to gravity drainage. A medium Graves open-sided speculum was introduced into the vagina. The cervix was visualized and grasped along its anterior lip with a single-tooth tenaculum. The uterus was gently sounded. Sound length was found to be 9 cm. No need for cervical dilation. I then placed a x- large VCare uterine manipulator. The tenaculum and speculum were removed. The green VCare cup was digitally pressed up against the cervix and then cinched in place with the blue accessory cup. I then changed gloves and my attention was turned to the abdomen. The inferior aspect of the umbilical fold was injected with 0.5% Marcaine plain. A 5 mm vertical incision was then made within the umbilical fold using a scalpel. A direct entry technique was used, the 5 mm laparoscopic port with CO2 gas set at 5mmHg was introduced under direct visualization. The trocar was removed leaving the sleeve in place. The CO2 gas flow was turned to high flow to achieve pneumoperitoneum. The 5 mm laparoscope was used then to carefully inspect the abdomen and pelvis with findings noted above. Pictures were taken for documentation purposes. The patient was placed in Trendelenburg positioning. Two additional ports were placed in the right and left lower quadrants under direct visualization after first anesthetizing the skin and fascia with 0.25% Marcaine plain. On the left side a 11mm port was utilized and on the right side a 5mm port placed. An additional 5mm port was placed on the abdomen at the level of the umbilicus to the left of umbilicus, about 3-4 cm lateral from umbilicus under direct visualization. Once the ports were in place, the VCare manipulator was used to elevate the uterus. The ureters were identified bilaterally along their courses in the pelvic sidewalls. The VCare cup was visualized and palpated with a blunt grasper. The left utero ovarian ligament was sealed and transected with the Thunderbeat device. The left round ligament was then sealed in a wide swath and transected with the Thunderbeat, excellent hemostasis was obtained. The broad ligament was then opened using the Thunderbeat anteriorly and posteriorly along the cervix from the left within the confines of the VCare cup. Pressure was maintained on the uterine manipulator the whole time. The left uterine vessels were sealed in a wide swath and transected with the Thunderbeat, then the tissues over the VCare cup edge on the left side were thinned using the Thunderbeat to the midline posteriorly and anteriorly so that the fascial layer could be identified. The right utero ovarian ligament was sealed and transected with the Thunderbeat device. The right round ligament was then sealed in a wide swath and transected with the Thunderbeat, excellent hemostasis was obtained. The right broad ligament was then opened using the Thunderbeat anteriorly and posteriorly along the cervix from the right within the confines of the VCare cup. Pressure was maintained on the uterine manipulator the whole time. The right uterine vessels were sealed in a wide swath and transected with the Thunderbeat, then the tissues over the VCare cup edge on the right side were thinned using the Thunderbeat to the midline posteriorly and anteriorly so that the fascial layer could be identified. A laparoscopic spatula and monopolar energy was then utilized to dissect the cervical fascial tissue and identify the green Vcare cup, tissue dissected circumferentially around the cervix within the groove of the VCare cup. Once the dissection was completed circumferentially, from the vagina the uterine manipulator and the uterus were removed. The uterus was left in the vagina to aid in maintaining pneumoperitoneum. The vaginal cuff was reapproximated in a running fashion with a V-Loc suture starting from the right side and running across to the left and then back to the midline where the suture was cut flush with the tissues. There was bleeding noted with one pass of the V-Loc suture and a small hematoma noted, not to be expanding. The pelvis was copiously irrigated and hemostasis visualized. Preparations were then made for cystoscopy. Methylene Blue was administered intravenously along with the IV fluids. The uterus was removed from vagina and sent to pathology. A repeat speculum exam was completed at this time and vaginal cuff seen to be well approximated without any bleeding concerns. The Weiss catheter was removed. The patient was flattened out. Cystoscopy was performed using sterile normal saline as distending medium. The bladder was carefully inspected and noted to be free of filling defects or suture material. Both ureteral orifices were easily visualized and methylene blue tinged urine jets were noted from both sides. The cystoscope was then removed. The Weiss catheter was replaced into the bladder. Attention was once again turned to the abdomen. The abdomen and pelvis were again irrigated and inspected for hemostasis. No evidence of expanding hematoma at vaginal cuff. Jackie was also placed at resection sites to further secure hemostasis. Left sigmoid colon adhesions to the left pelvic side wall were released utilizing laparoscopic scissors. Hemostasis secured. Attention was then placed to the 11mm port site and under direct visualization using a Cristopher- Padmini system the fascia was closed. All instruments were then removed under direct visualization. Pneumoperitoneum was allowed to escape. The skin at all port sites was closed in a subcuticular fashion with 4-0 Monocryl. LiquiBand was then placed over the incisions. The patient tolerated the procedure well. Sponge, lap, needle, and instrument counts were reported as correct x2. The patient was taken to the recovery room awake and in stable condition. She did receive 2 g of IV Ancef preoperatively. PATHOLOGY SPECIMEN(S): Uterus
--- NOTE | 2023-09-24 15:21 | W.ANESCHARGE ---
Anesthesia Charges Start Date/Time Anesthesia Start Date: 09/24/23 Anesthesia Start Time: 12:04 Stop Date/Time Anesthesia Stop Date: 09/24/23 Anesthesia Stop Time: 15:16
[2023-09-24] MEDS: HYDROmorphone 0.5 mg/0.5 ml inj 0.2 MG IVP ×2 (16:14→18:53)
[2023-09-24] MEDS: ACETAMINOPHEN 325 MG TABLET 1000 MG PO (17:18)
[2023-09-24] MEDS: LACTATED RINGERS 1000 ML 1,000 ML 125 ML IV (18:32)
--- NOTE | 2023-09-24 19:32 | PC.NURSE ---
pt is back from surgery pain was 8/10 she got IV Dilaudid and po Tylenol for pain. ice to the abd. Weiss is patent. Scds are on. she is eating and drinking. OBGYN was in to see after surgery. pt is very pleasant. pain was been 4-8/. IV i sp patant. frequent VS WNL
[2023-09-24] MEDS: KETOROLAC 30 MG/ML inj IVP (21:10)
[2023-09-25 03:00] VITALS: BP 116/76; PULSE 79; RESP 17; TEMP 36.9; O2SAT 98
[2023-09-25] MEDS: KETOROLAC 30 MG/ML inj IVP (03:41)
[2023-09-25 06:21] LABS: Hemoglobin* 11.2 gm/dL (12.0-16.0)
[2023-09-25 06:37] LABS: Creatinine* 0.7 mg/dL (0.5-1.5); Est. Creatinine Clearance* 90.29; Estimated Glomerular Filt Rate 121 ml/min
[2023-09-25 07:00] VITALS: BP 119/80; PULSE 89; RESP 18; TEMP 36.7; O2SAT 100
[2023-09-25] MEDS: IBUPROFEN 600 MG TABLET PO (07:47)
--- NOTE | 2023-09-25 08:20 | P.DS_ITS ---
DS: Providers Provider Date Seen: 09/25/23 Date of admission: 09/24/23 Primary care physician: Danielle Guardado PA-C Attending Physician on discharge: Jenna Young MD Date of Discharge: 09/25/23 DS: Diagnosis Discharge Diagnosis (1) S/P laparoscopic hysterectomy: Status: Acute FORMULA MIXER-Discharge Summary Hospital Course Hospital Course Narrative: Patient is a 28 year old admitted on 09/24/23 for elective surgery. Indication for surgery: AUB, Chronic pelvic pain. Intra operative findings: large globular uterus, evidence of bilateral salpingectomy, grossly normal ovaries bilaterally, thin sigmoid colon adhesions to the left pelvic side wall. She had an uncomplicated surgery. Postoperative course has been uneventful. Vitals have been stable. She has remained afebrile. Today, on postoperative day 1, she reports the pain is well controlled. She has been able to ambulate Without difficulty. She is tolerating regular diet. She is passing flatus. Weiss catheter has been removed, and she is voiding without difficulty. Time Spent with Patient Time attestation: Total time spent providing and/or coordinating discharge services: Time spent: Less than 30 minutes FORMULA MIXER - Exam Physical Exam: Vital signs: Temp Pulse Resp BP Pulse Ox O2 Del Method 98.1 F 89 18 119/80 100 Room Air 09/25/23 07:00 09/25/23 07:00 09/25/23 07:00 09/25/23 07:00 09/25/23 07:00 09/25/23 07:00 Narrative: VITAL SIGNS: As noted above. GENERAL APPEARANCE: Alert, cooperative female in no acute distress. MOOD & AFFECT: Normal. ABDOMEN: Positive bowel sounds, soft, appropriately tender, incisions covered with glue and no surrounding erythema, abnormal induration or abnormal discharge. : Minimal spotting. EXTREMITIES: Nonedematous. Well perfused. Nontender. FORMULA MIXER - DS: Data Data Completed and Pending Labs on day of discharge: Labs from last 24 hours 09/25/23 09/24/23 09/24/23 06:08 Unknown 10:46 Hgb 11.2 L 13.1 Creatinine 0.7 0.7 Estimated Creat Clear 90.29 90.29 Estimated GFR 121 121 Urine HCG, Qual Negative Blood Type AB Positive Antibody Screen NEGATIVE Procedures Procedures: Procedures Operation Date: 09/24/23 11:25 Actual Procedure Side Surgeon p Laparoscopic Hysterectomy, Cystoscopy, possible Excision of Fulguration of Endometriosis Implants Jenna Young MD Complications: none Discharge Plan Discharge Disposition: Home w/ Parent or Adult Discharging Surgeon: Jenna Young Follow-Up Appointment: Dr. Robertson, [facility], October 06 @ 1:45 pm Prescriptions: New acetaminophen 500 mg Tablet 1,000 mg PO Q6H PRN (Reason: minor pain) Qty: 30 0RF ibuprofen 600 mg Tablet 600 mg PO Q6H Qty: 30 0RF hydromorphone [Dilaudid] 2 mg tablet 2 mg PO Q4H PRN (Reason: pain) Qty: 14 0RF Discontinued ibuprofen 600 mg Tablet 600 mg PO Q6H PRN (Reason: Pain) Qty: 60 0RF Activity Level: No strenuous activity and No Weight Bearing Activity Detail: Nothing vaginally for 6 weeks, no lifting more than 15 pounds for 6 weeks Discharge Diet: Regular Patient Instructions: Laparoscopic Hysterectomy (DC) Follow-up: Jenna Young MD [Staff Physician] - 10/07/23 1:45 pm Danielle Guardado PASinaC [Primary Care Provider] - Discharge Orders: Discharge Order (Routine); Ordered 09/25/23 Ordered By: Jenna Young
--- NOTE | 2023-09-25 08:23 | PC.NURSE ---
Patient pleasant, alert and oriented. Given scheduled Ketorolac and applied ice pack for abdominal pain. Minimal bleeding from vagina. Lap sites have no drainage.?Reported discomfort from catheter and wanted it removed. Good urine output after niño catheter removed. Passing gas. Stand by assist with?ambulation. ?
[2023-09-25] MEDS: HYDROmorphone 0.5 mg/0.5 ml inj 0.2 MG IVP (09:58)
--- NOTE | 2023-09-25 10:54 | PC.NURSE ---
Discharge: Pt VSS. Alert and oriented. Patient ambulates independently with no complications. Able to void without any complications. Tolerates a regular diet. Pain rated at a 6/10. PRN Diluadid given prior to discharge. Laproscopic sites look WNL. No redness, warmth or discharge noted. Discharged via wheelchair at 1010. Discharge instructions signed by patient and RN.
== END 2023-09-25 10:10 | disposition home or self-care (01) ==
LOC: OR 10:13 → MEDSURG 10:14
PROVIDERS: Anesthesiology; PCP Physician Assistant Medical; Visit Provider Obstetrics & Gynecology
PROC: 0UT94ZZ Resection of Uterus, Percutaneous Endoscopic Approach (ICD-10-PCS; CPT 58570; principal; 2023-09-24 11:15)
DX: N93.8 Other specified abnormal uterine and vaginal bleeding (principal); R10.2 Pelvic and perineal pain; G89.29 Other chronic pain; N73.6 Female pelvic peritoneal adhesions (postinfective); Z90.79 Acquired absence of other genital organ(s); G89.18 Other acute postprocedural pain
CPT/HCPCS: 58570; 00840; 36415; 64488; 76942; 81025; 82565; 85018; 86850; 86900; 86901; 88309; A9270; C9290; J0665; J0690; J1100; J1170; J1630; J1885; J2250; J2371; J2405; J2704; J3010; J3490; J7120

== ENCOUNTER 2024-08-08 09:00 | Outpatient (RCR) | payer BC, SELFPAY | END 2024-12-06 23:59 | disposition home or self-care (01) | PROVIDERS: PCP Physician Assistant Medical; Visit Provider Family Medicine | DX: M25.572 Pain in left ankle and joints of left foot (principal); G89.29 Other chronic pain; M54.50 Low back pain, unspecified; M25.561 Pain in right knee; Z51.89 Encounter for other specified aftercare | CPT/HCPCS: 97110; 97112; 97162; 97163 ==